=== PATIENT | female | born 1975 | race African-American/Black ===

== ENCOUNTER 2024-07-07 17:58 | Emergency (ER) | payer OTHER ==
--- NOTE | 2024-07-07 19:25 | RAD REPORT ---
Exam:Knee Left 3 View HISTORY: Left knee pain FINDINGS: No fracture or dislocation seen Mild medial joint space narrowing
[2024-07-07 21:17] LABS: Absolute Eosinophils 0.1 K/uL (0-0.5); Absolute Lymphocytes (CBC) 1.4 K/uL (0.7-4.9); Absolute Monocytes 0.3 K/uL (0.1-1.3); Absolute Neutrophil 3.6 K/uL (1.8-8.0); Basophils % 0.8 % (0-1.3); Eosinophils % 1.9 % (0-4.4); Hematocrit 35.5 % (36.0-45.0); Hemoglobin 11.8 g/dL (12.0-15.0); Lymphocytes % 25.6 % (15.3-44.8); MCH 29.5 pg (27.0-35.0); MCHC 33.1 g/dL (32.0-36.0); MPV 10.5 fL (7.6-11.3); Monocytes % 5.7 % (3.3-12.3); Platelets 195 thou/uL (152-406); RBC Red Blood Cell Count 3.99 M/uL (3.86-4.86); Red Cell Distribution Width 13.8 % (12.1-15.2)
[2024-07-07] MEDS ORDERED: ONDANSETRON 4 MG/2 ML VIAL ONE (21:19)
[2024-07-07] MEDS ORDERED: KETOROLAC 30 MG/ML INJ ONE (21:19)
[2024-07-07 21:34] LABS: Albumin 3.5 g/dL (3.4-5.0); Albumin/Globulin Ratio 0.7 (1.1-1.8); Anion Gap 4.2 mEq/L (5.0-15.0); Bilirubin Total 0.3 mg/dL (0.2-1.0); Globulin 4.8 g/dL (2.3-3.5); Potassium 3.2 mEq/L (3.5-5.1); Protein, Total 8.3 g/dL (6.4-8.2)
--- NOTE | 2024-07-07 22:51 | RAD REPORT ---
EXAMINATION: CT ABDOMEN AND PELVIS WITH CONTRAST CLINICAL INDICATION: Abdominal pain TECHNIQUE: CT abdomen and pelvis was performed, after the administration of 100 cc Isovue-300.. Sagit mady and coronal reconstructions were obtained. One or more of the following dose reduction techniques were used: Automated exposure control, adjustment of the mA and/or kV according to patien t size, and/or iterative reconstruction. Unless otherwise specified, incidental findings do not require dedicated imaging follow-up. [id number]. Oral contrast was not given which limits evaluation of b owel and appendix. COMPARISON: none FINDINGS: Cholecystectomy The liver, spleen, pancreas, adrenals and kidneys appear unremarkable There is no evidence of diverticulitis Normal appendix. No adnexal mass 2.5 cm soft tissue structure extending off of the uterine fundus probably a fibroid. Moderate amount of stool is present within the transverse and right colon. : IMPRESSION: Moderate amount of stool is present within the transverse and right colon.
[2024-07-07 23:08] LABS: Specific Gravity > 1.030 (1.005-1.030)
[2024-07-07 23:09] LABS: Specific Gravity > 1.030 (1.005-1.030); Sqamous Epithelial <5 /HPF (None Seen); Urine Bacteria None Seen /HPF (<20); Urine Bilirubin NEGATIVE (Negative); Urine Blood Negative (Negative); Urine Clarity Clear (Clear); Urine Color Yellow (Yellow); Urine Culture Reflex Order NOT NEEDED; Urine Glucose NEGATIVE (Negative); Urine Ketones NEGATIVE (Negative); Urine Microscopic Reflex YN ORDER UMIC; Urine Mucus Slight /HPF (None Seen); Urine Nitrite NEGATIVE (Negative); Urine Protein TRACE (Negative); Urine RBC None Seen /HPF (None Seen); Urine Urobilinogen Normal (Normal); Urine WBC <5 /HPF (<5); Urine Yeast (Budding) Trace /HPF (None Seen); Urine pH 7.5 (5.0-7.0)
--- NOTE | 2024-07-07 23:20 | ER ---
Nurse's Notes [facility] Name: Oc Burks Age: 49 yrs Sex: Female : 1975 Arrival Date: 07/07/2024 Time: 17:58 Bed 25 Private MD: Diagnosis: Pain in left knee;Constipation Presentation: 07/07 17:59 Chief complaint: Patient states: left knee pain , pops in and out , abd pain since iw yesterday, thought she was constipated , dry heaving. Coronavirus screen: At this time, the client does not indicate any symptoms associated with coronavirus-19. Ebola Screen: No symptoms or risks identified at this time. Initial Sepsis Screen: Does the patient meet any 2 criteria? No. Patient's initial sepsis screen is negative. Does the patient have a suspected source of infection? No. Patient's initial sepsis screen is negative. Risk Assessment: Do you want to hurt yourself or someone else? Patient reports no desire to harm self or others. 17:59 Method Of Arrival: EMS: [facility] iw 17:59 Acuity: MICHAEL 4 iw 18:10 Acuity: MICHAEL 3 iw 18:18 Onset of symptoms was July 06, 2024. 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 - Infectious Disease History:: Denies. - Social history:: Smoking status: Patient denies any tobacco usage or history of. Screenin:30 [facility] ED Fall Risk Assessment (Adult) History of falling in the last 3 months, jb4 including since admission No falls in past 3 months (0 pts) Confusion or Disorientation No (0 pts) Intoxicated or Sedated No (0 pts) Impaired Gait Yes (1 pt) Mobility Assist Device Used No (0 pt) Altered Elimination No (0 pt) Score/Fall Risk Level 0 - 2 = Low Risk Oriented to surroundings, Maintained a safe environment. Abuse screen: Denies threats or abuse. Nutritional screening: No deficits noted. Tuberculosis screening: No symptoms or risk factors identified. Assessment: 20:15 General: Appears in no apparent distress. comfortable, Behavior is calm, cooperative, jb4 appropriate for age. Pain: Complains of pain in left knee Pain does not radiate. Pain currently is 5 out of 10 on a pain scale. Neuro: Level of Consciousness is awake, alert, obeys commands, Oriented to person, place, time, situation. Cardiovascular: Patient's skin is warm and dry. Respiratory: Airway is patent Respiratory effort is even, unlabored, Respiratory pattern is regular, symmetrical. GI: No signs and/or symptoms were reported involving the gastrointestinal system. Pt eating chips. : No signs and/or symptoms were reported regarding the genitourinary system. EENT: No signs and/or symptoms were reported regarding the EENT system. Derm: Skin is intact, Skin is pink, warm \T\ dry. Musculoskeletal: Circulation, motion, and sensation intact. Range of motion: intact in all extremities. 21:30 Reassessment: Patient appears in no apparent distress at this time. Patient and/or jb4 family updated on plan of care and expected duration. Pain level reassessed. Patient is alert, oriented x 3, equal unlabored respirations, skin warm/dry/pink. 23:37 Reassessment: Patient appears in no apparent distress at this time. Patient and/or jb4 family updated on plan of care and expected duration. Pain level reassessed. Patient is alert, oriented x 3, equal unlabored respirations, skin warm/dry/pink. Vital Signs: 18:18 BP 135 / 84; Pulse 83; Resp 16; Temp 98.4; Pulse Ox 100% on R/A; Weight 90.72 kg; iw Height 5 ft. 7 in. ; Pain 8/10; 22:00 BP 172 / 115; Pulse 58; Resp 16; Pulse Ox 100% on R/A; jb4 18:18 Body Mass Index 31.32 (90.72 kg, 170.18 cm) iw 18:18 Pain Scale: Adult iw ED Course: 17:58 Patient arrived in ED. iw 17:59 Triage completed. iw 18:00 Nilson Ramos PA is PHCP. cp 18:00 Rodney Loving MD is Attending Physician. cp 19:14 XRAY Knee LEFT 3 view In Process Unspecified. EDMS 20:34 Attending Physician role handed off by Rodney Loving MD rt 20:34 Osmin Fuller MD is Attending Physician. rt 21:09 Missed attempt(s): 22 gauge Bleeding controlled, band aid applied, catheter tip intact. oe 21:10 Inserted saline lock: 20 gauge in right antecubital area, using aseptic technique. oe Blood collected. Flushed with 10 mL NS. 21:30 Patient has correct armband on for positive identification. Bed in low position. Call jb4 light in reach. Side rails up X 1. Provided Education on: plan of care. 22:09 CT Abd/Pelvis - IV Contrast Only In Process Unspecified. EDMS 23:38 No provider procedures requiring assistance completed. IV discontinued, intact, jb4 bleeding controlled, No redness/swelling at site. Pressure dressing applied. Administered Medications: 21:23 Drug: Ketorolac IVP 15 mg IVP once Route: IVP; Site: right antecubital; jb4 23:36 Follow up: Response: No adverse reaction; Marked relief of symptoms jb4 21:23 Drug: Ondansetron IVP 4 mg IVP once; over 2 minutes Route: IVP; Site: right antecubital;jb4 23:36 Follow up: Response: No adverse reaction; Marked relief of symptoms jb4 Medication: 21:30 VIS not applicable for this client. jb4 Outcome: 23:20 Discharge ordered by . rt 23:38 Discharged to home via wheelchair, with family, jb4 23:38 Condition: stable 23:38 Discharge instructions given to patient, Instructed on discharge instructions, follow up and referral plans. medication usage, Demonstrated understanding of instructions, follow-up care, medications, Prescriptions given X 1, 23:38 Patient left the ED. jb4 Signatures: Dispatcher [employer] EDMS Marycruz Henriquez, RN RN iw Nilson Ramos PA PA cp Bryson, James RN RN jb4 Carlos Alberto Caceres oe Osmin Fuller MD MD rt Corrections: (The following items were deleted from the chart) 18:19 17:59 Chief complaint: Patient states: left knee pain , pops in and out iw iw
--- NOTE | 2024-07-07 23:20 | EDPHYS ---
Physician Documentation [facility] Name: Oc Burks Age: 49 yrs Sex: Female : 1975 Arrival Date: 07/07/2024 Time: 17:58 Bed 25 Private MD: ED Physician Osmin Fuller HPI: 07/07 18:05 This 49 yrs old Black Female presents to ER via EMS with complaints of Knee Pain. cp 18:05 The patient presents with pain, that is chronic, tenderness. The complaints affect the cp lateral aspect of left knee and left knee. 18:05 Context: the patient is not able to bear weight, the patient is not able to ambulate, cp Problem is a result from a previous injury: No. Associated signs and symptoms: Pertinent positives: nausea. The patient presents with abdominal pain left flank. Onset: The symptoms/episode began/occurred yesterday. 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 - Infectious Disease History:: Denies. - Social history:: Smoking status: Patient denies any tobacco usage or history of. ROS: 18:10 Constitutional: Negative for body aches, chills, fever, poor PO intake, cp 18:10 Eyes: Negative for injury, pain, redness, and discharge, cp 18:10 Cardiovascular: Negative for chest pain, palpitations, 18:10 Respiratory: Negative for cough, shortness of breath, wheezing, 18:10 Abdomen/GI: Positive for abdominal pain, nausea, of the left flank, Negative for vomiting, diarrhea, constipation, 18:10 MS/extremity: Positive for decreased range of motion, pain, of the left knee, Negative for deformity, Exam: 18:15 Head/Face: Normocephalic, atraumatic. cp 18:15 Constitutional: The patient appears in no acute distress, alert, awake, non-diaphoretic, non-toxic, well developed, well nourished, obese, uncomfortable, 18:15 Eyes: Periorbital structures: appear normal, Conjunctiva: normal, no exudate, no injection, Sclera: no appreciated abnormality, Lids and lashes: appear normal, bilaterally, 18:15 ENT: External ear(s): are unremarkable, Nose: is normal, Mouth: Lips: moist, Oral mucosa: moist, Posterior pharynx: Airway: normal, 18:15 Chest/axilla: Inspection: normal, 18:15 Cardiovascular: Rate: normal, Rhythm: regular, 18:15 Respiratory: the patient does not display signs of respiratory distress, Respirations: normal, no use of accessory muscles, no retractions, labored breathing, is not present, Breath sounds: are clear throughout, no decreased breath sounds, no stridor, no wheezing, 18:15 Abdomen/GI: Inspection: obese Bowel sounds: active, all quadrants, Palpation: soft, in all quadrants, moderate abdominal tenderness, in the left upper quadrant and left lower quadrant, rebound tenderness, is not appreciated, involuntary guarding, is not appreciated, 18:15 Musculoskeletal/extremity: Extremities: noted in the left knee: pain, tenderness, There is no evidence of deformity, ROM: limited passive range of motion due to pain, in the left knee, 18:15 Neuro: Orientation: to person, place \T\ time. Mentation: is normal, Vital Signs: 18:18 BP 135 / 84; Pulse 83; Resp 16; Temp 98.4; Pulse Ox 100% on R/A; Weight 90.72 kg; iw Height 5 ft. 7 in. ; Pain 8/10; 22:00 BP 172 / 115; Pulse 58; Resp 16; Pulse Ox 100% on R/A; jb4 18:18 Body Mass Index 31.32 (90.72 kg, 170.18 cm) iw 18:18 Pain Scale: Adult iw MDM: 18:00 Patient medically screened. cp 07/07 18:01 Order name: CBC with Diff; Complete Time: 22:04 cp 07/07 18:01 Order name: CMP; Complete Time: 22:04 cp 07/07 18: Order name: Lipase; Complete Time: 22:04 cp 07/07 18:01 Order name: Test, Urine; Complete Time: 23:16 cp 07/07 18:01 Order name: Urinalysis w/ reflexes; Complete Time: 23:16 cp 07/07 18: Order name: XRAY Knee LEFT 3 view; Complete Time: 19:54 07/07 19:54 Interpretation: Report reviewed. 07/07 18:55 Order name: CT Abd/Pelvis - IV Contrast Only; Complete Time: 22:54 07/07 18:01 Order name: IV Saline Lock; Complete Time: 21:18 cp 07/07 18:01 Order name: Labs collected and sent; Complete Time: 21:18 07/07 23:37 Order name: [place] Wrap; Complete Time: 23:37 jb4 Administered Medications: 21:23 Drug: Ketorolac IVP 15 mg IVP once Route: IVP; Site: right antecubital; jb4 23:36 Follow up: Response: No adverse reaction; Marked relief of symptoms jb4 21:23 Drug: Ondansetron IVP 4 mg IVP once; over 2 minutes Route: IVP; Site: right antecubital;jb4 23:36 Follow up: Response: No adverse reaction; Marked relief of symptoms jb4 Disposition: 07/08 00:47 Co-signature as Attending Physician, Osmin Fuller MD I reviewed the patient's care rt provided by Advanced Practice Provider \T\ agree w/ the diagnosis \T\ care plan. I personally saw the pt \T\ performed a substantive portion of the visit, incldng all aspects of the (History/Exam/Medical Decision Making). 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 My personal exam of patient reveals: No swelling, erythema noted to the knee Patient informed of findings of fatty liver, instructed to follow-up as an outpatient.. Disposition Summary: 07/07/24 23:20 Discharge Ordered Notes: Location: Home rt Problem: new rt Symptoms: have improved rt Condition: Stable rt Diagnosis - Pain in left knee rt - Constipation rt Followup: rt - With: Private Physician - When: 2 - 3 days - Reason: Discharge Instructions: - Discharge Summary Sheet rt - Constipation, Adult rt - Acute Knee Pain, Adult rt Forms: - Medication Reconciliation Form rt - Antibiotic Education rt - Prescription Opioid Use rt - Patient Portal Instructions rt - Leadership Thank You Letter rt Prescriptions: - Lactulose 10 gram/15 mL Oral Solution - take 30 milliliters ORAL route once daily; 300 milliliter; Refills: 0, Product rt Selection Permitted Signatures: Dispatcher [employer] EDMS Martinez, MarycruzHEMA luna RN, Corey, PA PA cp Bryson, James, RN RN jb4 Osmin Fuller MD MD rt Corrections: (The following items were deleted from the chart) 07/07 18: 18:01 CBC+H.LAB.BRZ ordered. EDMS EDMS 18: 18:01 COMPREHENSIVE METABOLIC PANEL+C.LAB.BRZ ordered. EDMS EDMS 18: 18:01 LIPASE+C.LAB.BRZ ordered. EDWI EDMS 18: 18:01 Test, Urine+UC.LAB.BRZ ordered. EDMS EDMS 18: 18:01 Urinalysis+U.LAB.BRZ ordered. EDWI EDMS 20:07/06 18:15 Constitutional: The patient appears in no acute distress, alert, awake, cp non-diaphoretic, non-toxic, well developed, well nourished, obese, uncomfortable, cp 07/07 20:07/06 18:15 Head/Face: Normocephalic, atraumatic. cp cp 07/07 20:07/06 18:15 Eyes: Periorbital structures: appear normal, Conjunctiva: normal, no cp exudate, no injection, Sclera: no appreciated abnormality, Lids and lashes: appear normal, bilaterally, cp 07/07 20:07/06 18:15 ENT: External ear(s): are unremarkable, Nose: is normal, Mouth: Lips: cp moist, Oral mucosa: moist, Posterior pharynx: Airway: normal, cp 07/07 20:07/06 18:15 Chest/axilla: Inspection: normal, cp 07/07 20:07/06 18:15 Cardiovascular: Rate: normal, Rhythm: regular, cp 07/07 20:07/06 18:15 Respiratory: the patient does not display signs of respiratory distress, cp Respirations: normal, no use of accessory muscles, no retractions, labored breathing, is not present, Breath sounds: are clear throughout, no decreased breath sounds, no stridor, no wheezing, cp 07/07 20:07/06 18:15 Abdomen/GI: Inspection: obese Bowel sounds: active, all quadrants, cp Palpation: soft, in all quadrants, moderate abdominal tenderness, in the left upper quadrant and left lower quadrant, rebound tenderness, is not appreciated, involuntary guarding, is not appreciated, cp 07/07 20:07/06 18:15 Musculoskeletal/extremity: Extremities: noted in the left knee: pain, cp tenderness, There is no evidence of deformity, ROM: limited passive range of motion due to pain, in the left knee, cp 07/07 20:07/06 18:15 Neuro: Orientation: to person, place \T\ time. Mentation: is normal, cp cp 07/07 23:36 19:54 Knee Immobilizer ordered. cp jb4
[2024-07-07 23:56] VITALS: TEMP 98.4; O2SAT 100
[2024-07-07 23:58] VITALS: BP 172/115
== END 2024-07-07 23:38 | disposition home or self-care (01) ==
LOC: ER 17:58
DX: M25.562 Pain in left knee (principal); K59.00 Constipation, unspecified
CPT/HCPCS: 85025; 81001; 36415; 81025; 83690; 80053; 74177; 73562; 96375; 96374; 99284; Q9967; J2405

== ENCOUNTER 2024-07-12 01:13 | Emergency (ER) | payer OTHER ==
[2024-07-12] MEDS ORDERED: DIAZEPAM 5 MG TABLET ONE (01:51)
[2024-07-12 02:05] LABS: ALT/SGPT 23 U/L (13-56); AST/SGOT 28 U/L (15-37); Albumin 3.3 g/dL (3.4-5.0); Albumin/Globulin Ratio 0.7 (1.1-1.8); Alkaline Phosphatase 79 U/L (45-117); Anion Gap 8.4 mEq/L (5.0-15.0); BUN Blood Urea Nitrogen 16 mg/dL (7-18); Bicarbonate 27 mEq/L (21-32); Bilirubin Total 0.2 mg/dL (0.2-1.0); Globulin 4.6 g/dL (2.3-3.5); Glomerular Filtration Rate 69 ml/min (=/>90); Glucose Level 76 mg/dL (74-106); Magnesium 2.2 mg/dL (1.6-2.4); NT PRO-BNP 136 pg/mL (<125); Potassium 3.4 mEq/L (3.5-5.1); Protein, Total 7.9 g/dL (6.4-8.2); Sodium Level 140 mEq/L (136-145); Troponin High Sensitivity 3.8 pg/mL (<58.9)
[2024-07-12 02:12] LABS: Bilirubin Direct < 0.2 mg/dL (0-0.2)
[2024-07-12 02:18] LABS: Absolute Eosinophils 0.1 K/uL (0-0.5); Absolute Lymphocytes (CBC) 1.6 K/uL (0.7-4.9); Absolute Monocytes 0.4 K/uL (0.1-1.3); Absolute Neutrophil 3.4 K/uL (1.8-8.0); Basophils % 0.6 % (0-1.3); Eosinophils % 2.1 % (0-4.4); Hemoglobin 11.6 g/dL (12.0-15.0); Lymphocytes % 27.9 % (15.3-44.8); MCH 29.4 pg (27.0-35.0); MCHC 32.4 g/dL (32.0-36.0); MCV 90.7 fL (80-100); MPV 11.7 fL (7.6-11.3); Monocytes % 7.4 % (3.3-12.3); Platelets 183 thou/uL (152-406); RBC Red Blood Cell Count 3.96 M/uL (3.86-4.86); Red Cell Distribution Width 13.7 % (12.1-15.2)
--- NOTE | 2024-07-12 02:45 | EDPHYS ---
Physician Documentation [facility] Name: Oc Burks Age: 49 yrs Sex: Female : 1975 Arrival Date: 07/12/2024 Time: 01:13 Bed 4 Private MD: ED Physician River Gomez HPI: 07/12 01:28 This 49 yrs old Black Female presents to ER via Unassigned with complaints of Chest sp4 Pain. 02:42 Patient is 49-year-old female who presents complaining of nonexertional midsternal sp4 chest pain as she was having difficult time dealing with identity theft. Denied Exertional chest pain denied prior history of heart disease. 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 - Infectious Disease History:: Denies. - Social history:: Smoking status: Patient denies any tobacco usage or history of. Patient/guardian denies using street drugs. - Family history:: not pertinent. ROS: 02:42 Constitutional: Negative for fever, chills, and weight loss, positive today for sp4 midsternal chest pain 02:42 All other systems are negative, Exam: 02:42 Constitutional: This is a well developed, well nourished patient who is awake, alert, sp4 and in no acute distress. Head/Face: Normocephalic, atraumatic. Eyes: Pupils equal round and reactive to light, extra-ocular motions intact. Lids and lashes normal. Conjunctiva and sclera are not injected. Cornea within normal limits. Periorbital areas with no swelling, redness, or edema. ENT: Nares patent. No nasal discharge, no septal abnormalities noted. Tympanic membranes are normal and external auditory canals are clear. Oropharynx with no redness, swelling, or masses, exudates, or evidence of obstruction, uvula midline. Mucous membranes moist. Neck: Trachea midline, no thyromegaly or masses palpated, and no cervical lymphadenopathy. Supple, full range of motion without nuchal rigidity, or vertebral point tenderness. Chest/axilla: Normal chest wall appearance and motion. Nontender with no deformity. No lesions are appreciated. Cardiovascular: Regular rate and rhythm with a normal S1 and S2. No gallops, murmurs, or rubs. Normal PMI, no JVD. No pulse deficits. Respiratory: Lungs have equal breath sounds bilaterally, clear to auscultation and percussion. No rales, rhonchi or wheezes noted. No increased work of breathing, no retractions or nasal flaring. Abdomen/GI: Soft, with normal bowel sounds. No distension or tympany. No guarding or rebound. No evidence of tenderness throughout. Back: No spinal tenderness. No costovertebral tenderness. Skin: Warm, dry with normal turgor. Normal color with no rashes, no lesions, and no evidence of cellulitis. MS/ Extremity: Pulses equal, no cyanosis. Neurovascular intact. Full, normal range of motion. Neuro: Awake and alert, GCS 15, oriented to person, place, time, and situation. Cranial nerves II-XII grossly intact. Motor strength 5/5 in all extremities. Sensory grossly intact. Psych: Awake, alert, with orientation to person, place and time. Behavior, mood, and affect are within normal limits 02:43 ECG was reviewed by the Attending Physician. EKG at 0 126 normal sinus rhythm rate sp4 87 Vital Signs: 01:22 BP 135 / 73; Pulse 92; Resp 22 S; Temp 98.1; Pulse Ox 100% on R/A; Weight 86.18 kg; br2 Height 5 ft. 7 in. ; Pain 7/10; 02:30 BP 130 / 70; Pulse 80; Resp 20 S; Pulse Ox 98% on R/A; Pain 2/10; br2 01:22 Body Mass Index 29.76 (86.18 kg, 170.18 cm) br2 01:22 Pain Scale: Adult br2 02:30 Pain Scale: Adult br2 Cyril Coma Score: 02:42 Eye Response: spontaneous(4). Motor Response: obeys commands(6). Verbal Response: sp4 oriented(5). Total: 15. MDM: 01:29 Patient medically screened. sp4 02:45 Differential diagnosis: acute pericarditis, anxiety, coronary artery disease chest wall sp4 pain, congestive heart failure. HEART Score: History: Slightly Suspicious (0), ECG: Normal (0), Age: > 45 and < 65 years (1), Risk Factors: No Risk Factors Known (0), Troponin: < or = 1 x Normal Limit (0), Total Score = 1. The patient was not given aspirin in the Emergency Department. Aspirin not given, patient refused. Data reviewed: vital signs, nurses notes, old medical records, lab test result(s), EKG. ED course: Work up Negative today, patient stable for discharge home.. 07/12 01:28 Order name: Basic Metabolic Panel; Complete Time: 02:37 sp4 07/12 01:28 Order name: CBC with Diff; Complete Time: 02:37 sp4 07/12 01:28 Order name: LFT's; Complete Time: 02:37 sp4 07/12 01:28 Order name: Magnesium; Complete Time: :37 sp4 07/12 01:28 Order name: NT PRO-BNP; Complete Time: 02:37 sp4 07/12 01:28 Order name: Troponin HS; Complete Time: 02:37 sp4 07/12 01:28 Order name: EKG; Complete Time: 01:29 sp4 07/12 01:28 Order name: Cardiac monitoring; Complete Time: :55 sp4 07/12 01:28 Order name: EKG - Nurse/Tech; Complete Time: sp4 07/12 01:28 Order name: IV Saline Lock; Complete Time: 55 sp4 07/12 01:28 Order name: Labs collected and sent; Complete Time: :56 sp4 07/12 01:28 Order name: O2 Per Protocol; Complete Time: :56 sp4 07/12 01:28 Order name: O2 Sat Monitoring; Complete Time: :56 sp4 EC:43 Rate is 87 beats/min. Rhythm is regular, Normal Sinus Rhythm. QRS [place] is Normal. ME sp4 interval is normal. QRS interval is normal. QT interval is normal. No Q waves. T waves are Normal. No ST changes noted. Clinical impression: No evidence of ischemia. Interpreted by me. Reviewed by me. Administered Medications: 01:55 Drug: Diazepam PO 10 mg PO once Route: PO; br2 02:59 Follow up: Response: No adverse reaction; Pain is decreased br2 Disposition Summary: 07/12/24 02:44 Discharge Ordered Notes: Location: Home sp4 Problem: new sp4 Symptoms: have improved sp4 Condition: Stable sp4 Diagnosis - Acute anxiety attack, Anxiety disorder , Non cardiac chest pain sp4 Followup: sp4 - With: Private Physician - When: As needed - Reason: Recheck today's complaints Discharge Instructions: - Discharge Summary Sheet sp4 - Managing Anxiety, Adult sp4 Forms: - Patient Portal Instructions sp4 Prescriptions: - Valium 5 mg Oral tablet - take 1 tablet ORAL route once daily As needed PRN anxiety; 12 tablet; Refills: sp4 0, Product Selection Permitted Signatures: Dispatcher [employer] EDMS River Gomez MD MD sp4 Isabela Ely RN RN br2 Corrections: (The following items were deleted from the chart) 01: 01:29 BASIC METABOLIC PANEL+C.LAB.BRZ ordered. EDMS EDMS : 01:29 CBC+H.LAB.BRZ ordered. EDMS EDMS : 01:29 HEPATIC FUNCTION+C.LAB.BRZ ordered. EDMS EDMS : 01:29 MAGNESIUM+C.LAB.BRZ ordered. EDMS EDMS : 01:29 PROBNP+C.LAB.BRZ ordered. EDMS EDMS 01: 01:29 Troponin High Sensitivity+C.LAB.BRZ ordered. EDMS EDMS
--- NOTE | 2024-07-12 02:45 | ER ---
Nurse's Notes [facility] Name: Oc Burks Age: 49 yrs Sex: Female : 1975 Arrival Date: 07/12/2024 Time: 01:13 Bed 4 Private MD: Diagnosis: Acute anxiety attack, Anxiety disorder , Non cardiac chest pain Presentation: 07/12 01:22 Chief complaint: Patient states: PT STATES PAIN MID-STERNAL CP WORSE WHEN SHE TAKES A br2 DEEP BREATH 04/16 EMS states: PT BROUGHT VIA EMS DUE TO MID-STERNAL CHEST PAIN. PER EMS PT HAD AN EPISODE WHILE LYING SUPINE ON STRETCHER THAT HER B/P DROPPED. Coronavirus screen: Client denies travel out of the [place] in the last 14 days. Ebola Screen: Patient negative for fever greater than or equal to 101.5 degrees Fahrenheit, and additional compatible Ebola Virus Disease symptoms Patient denies exposure to infectious person. Patient denies travel to an Ebola-affected area in the 21 days before illness onset. Initial Sepsis Screen: Does the patient meet any 2 criteria? No. Patient's initial sepsis screen is negative. Does the patient have a suspected source of infection? No. Patient's initial sepsis screen is negative. Risk Assessment: Do you want to hurt yourself or someone else? Patient reports no desire to harm self or others. Onset of symptoms. 01:22 Method Of Arrival: EMS: [facility] br2 01:22 Acuity: MICHAEL 3 br2 Triage Assessment: 01:22 General: Appears in no apparent distress. comfortable, Behavior is cooperative, br2 restless. Pain: Complains of pain in chest Pain does not radiate. Pain currently is 7 out of 10 on a pain scale. Pain began 1 day ago. EENT: No signs and/or symptoms were reported regarding the EENT system. Neuro: Vale Agitation-Sedation Scale (RASS): 0 - Alert and Calm Level of Consciousness is awake, alert, obeys commands, Oriented to person, place, time, situation, Speech is normal, Facial symmetry appears normal. Cardiovascular: Reports chest pain, Capillary refill < 3 seconds. Respiratory: Breath sounds are clear bilaterally. GI: No signs and/or symptoms were reported involving the gastrointestinal system. Abdomen is round Abd is soft and non tender X 4 quads. : No signs and/or symptoms were reported regarding the genitourinary system. Derm: Skin is intact, Skin is dry, Skin is normal, Skin temperature is warm. 01:22 Musculoskeletal: No signs and/or symptoms reported regarding the musculoskeletal br2 system. Capillary refill < 3 seconds, Range of motion: intact in all extremities. STAFF DEVELOPMENT COORDINATOR: 02:30 LMP N/A - , Not br2 Historical: - Allergies: 01:42 PENICILLINS; br2 - PSHx: 01:42 section; br2 - Immunization history:: Adult Immunizations not up to date. - Infectious Disease History:: Denies. - Social history:: Smoking status: Patient denies any tobacco usage or history of. Patient/guardian denies using street drugs. - Family history:: not pertinent. Screenin: [facility] ED Fall Risk Assessment (Adult) History of falling in the last 3 months, br2 including since admission No falls in past 3 months (0 pts) Confusion or Disorientation No (0 pts) Intoxicated or Sedated No (0 pts) Impaired Gait No (0 pts) Mobility Assist Device Used No (0 pt) Altered Elimination No (0 pt) Score/Fall Risk Level 0 - 2 = Low Risk. Abuse screen: Denies threats or abuse. Denies injuries from another. Abuse screen: Denies threats or abuse. Nutritional screening: No deficits noted. Tuberculosis screening: No symptoms or risk factors identified. Assessment: :22 Reassessment: SEE TRIAGE ASSESSMENT. Pain: Complains of pain in chest. br2 02:30 Reassessment: Patient and/or family updated on plan of care and expected duration. Pain br2 level reassessed. Patient is alert, oriented x 3, equal unlabored respirations, skin warm/dry/pink. Patient states feeling better. Patient states symptoms have improved. Pain: Complains of pain in chest Pain currently is 2 out of 10 on a pain scale. Vital Signs: 01:22 BP 135 / 73; Pulse 92; Resp 22 S; Temp 98.1; Pulse Ox 100% on R/A; Weight 86.18 kg; br2 Height 5 ft. 7 in. ; Pain 7/10; 02:30 BP 130 / 70; Pulse 80; Resp 20 S; Pulse Ox 98% on R/A; Pain 2/10; br2 01:22 Body Mass Index 29.76 (86.18 kg, 170.18 cm) br2 01:22 Pain Scale: Adult br2 02:30 Pain Scale: Adult br2 [place] Coma Score: 02:42 Eye Response: spontaneous(4). Motor Response: obeys commands(6). Verbal Response: sp4 oriented(5). Total: 15. ED Course: 01:22 Patient arrived in ED. ha1 01:22 Arm band placed on left wrist. Patient placed on a stretcher, in view of staff members, br2 on traffic monitor specialist, on pulse oximetry. EKG completed in triage. Results shown to MD. 01:22 Patient has correct armband on for positive identification. Placed in gown. Bed in low br2 position. Call light in reach. Side rails up X 1. Provided Education on: PLAN OF CARE. Client placed on continuous cardiac and pulse oximetry monitoring. NIBP monitoring applied. monitor worker on. Door closed. Noise minimized. Lights dimmed. 01:28 River Gomez MD is Attending Physician. sp4 01:29 Inserted saline lock: 20 gauge in right antecubital area, using aseptic technique. ha1 Blood collected. Flushed with 10 mL NS. 01:33 Isabela Ely, RN is Primary Nurse. br2 01:42 Triage completed. br2 01:56 Basic Metabolic Panel Sent. br2 01:56 CBC with Diff Sent. br2 01:56 LFT's Sent. br2 01:56 Magnesium Sent. br2 01:56 NT PRO-BNP Sent. br2 01:56 Troponin HS Sent. br2 02:57 No provider procedures requiring assistance completed. IV discontinued, intact, br2 bleeding controlled, No redness/swelling at site. Patient maintains SpO2 saturation greater than 95% on room air. Administered Medications: 01:55 Drug: Diazepam PO 10 mg PO once Route: PO; br2 02:59 Follow up: Response: No adverse reaction; Pain is decreased br2 Medication: 01:22 VIS not applicable for this client. br2 Outcome: 02:44 Discharge ordered by . sp4 02:57 Discharged to home ambulatory, br2 02:57 Condition: good 02:57 Discharge instructions given to patient, Instructed on discharge instructions, follow up and referral plans. medication usage, Demonstrated understanding of instructions, follow-up care, medications, Prescriptions given X 1, 02:58 Patient left the ED. br2 Signatures: Evelyn Carver RN RN ha1 River Gomez MD MD sp4 Isabela Ely RN RN br2 Corrections: (The following items were deleted from the chart) 03:43 01:22 LMP N/A - , Not br2 br2
[2024-07-12 03:08] VITALS: BP 135/73; TEMP 98.1; O2SAT 100
--- NOTE | 2024-07-14 11:58 | EKG ---
Test Date: 2024-07-12 Test Time: 01:26:26 Steak Tenderizer Machine: TESFAYE MEASUREMENT RESULTS: Intervals: Rate: 87 OR: 138 QRSD: 96 QT: 380 QTc: 457 [place]: P: 68 OR: 138 QRS: 28 T: 23 INTERPRETIVE STATEMENTS: Normal sinus rhythm Nonspecific T wave abnormality Abnormal ECG No previous ECG available for comparison Electronically Signed On 07-14-24 11:53:39 CDT by Terrence Stevenson
== END 2024-07-12 02:58 | disposition home or self-care (01) ==
LOC: ER 01:13
DX: F41.0 Panic disorder [episodic paroxysmal anxiety] (principal); F41.9 Anxiety disorder, unspecified
CPT/HCPCS: 36415; 80048; 80076; 83735; 83880; 84484; 85025; 93005; 99285

== ENCOUNTER 2024-07-13 01:39 | Emergency (ER) | payer OTHER ==
[2024-07-13] MEDS ORDERED: DIAZEPAM 5 MG TABLET ONE (01:57)
--- NOTE | 2024-07-13 02:16 | EDPHYS ---
Physician Documentation [facility] Name: Oc Burks Age: 49 yrs Sex: Female : 1975 Arrival Date: 07/13/2024 Time: 01:39 Bed 18 Private MD: ED Physician Alejo Reilly HPI: 07/13 01:49 This 49 yrs old Black Female presents to ER via Unassigned with complaints of Chest ec2 Pain. 01:49 Patient arrives today for reported anxiety. Patient was seen here last night for ec2 similar complaints. States that she was on the phone tonight and started and worked up and subsequently started having chest pain. No other concerns. External records show patient had a reassuring workup yesterday with a reassuring metabolic profile, CBC, troponin. . GAMING ASSOCIATE: 02:40 LMP N/A - Irregular menses, Not br2 - Immunization history:: Adult Immunizations not up to date. - Infectious Disease History:: Denies. - Social history:: Smoking status: Patient/guardian denies using tobacco, but has a distant history of tobacco abuse, Patient/guardian denies using. ROS: 01:50 Constitutional: as per hpi ec2 Exam: 01:50 Constitutional: GEN: NAD Head: atraumatic Eyes: EOMI Ears: External ears are ec2 normal. CV: regular rate LUNGS: no respiratory distress ABD: non-distended SKIN: no evidence of rashes MSK: no evidence of trauma. Psych: Hyperverbal individual with flight of ideas Vital Signs: 01:40 BP 161 / 93; Pulse 98; Resp 21 S; Temp 98.1(TE); Pulse Ox 100% on R/A; Weight 89.81 kg; br2 Height 5 ft. 7 in. ; Pain 8/10; 02:40 BP 141 / 95; Pulse 86; Resp 16 S; Temp 98.2; Pulse Ox 100% on R/A; Pain 10/10; br2 01:40 Body Mass Index 31.01 (89.81 kg, 170.18 cm) br2 01:40 Pain Scale: Adult br2 02:40 Pain Scale: Adult br2 MDM: 01:41 Patient medically screened. ec2 01:50 Data reviewed: vital signs. ED course: Patient arrives today for reported chest pain. ec2 Examination remarkable for well-appearing nontoxic dividual's otherwise in no acute distress. Patient is hyperverbal, suspect an underlying psychiatric disease. Will obtain EKG. Will give the patient Valium for her anxiety and verbosity . 02:09 ED course: EKG independently reviewed and interpreted by me, shows normal sinus rhythm, ec2 rate of 90, no acute ST segment elevations, intervals are nonactionable. . 07/13 01:42 Order name: EKG - Nurse/Tech; Complete Time: 02:09 ec2 Administered Medications: 01:58 Drug: Diazepam PO 5 mg PO once Route: PO; br2 02:15 Follow up: Response: No adverse reaction; Pain is decreased br2 Disposition Summary: 07/13/24 02:16 Discharge Ordered Notes: Location: Home ec2 Condition: Stable ec2 Diagnosis - Chest Pain ec2 - Flight of Ideas ec2 Followup: ec2 - With: Private Physician - When: - Reason: Re-evaluation by your physician Discharge Instructions: - Discharge Summary Sheet ec2 - Managing Anxiety, Adult ec2 Forms: - Medication Reconciliation Form ec2 - Antibiotic Education ec2 - Prescription Opioid Use ec2 - Patient Portal Instructions ec2 - Leadership Thank You Letter ec2 Signatures: Alejo Reilly MD MD ec2 Isabela Ely RN RN br2 Corrections: (The following items were deleted from the chart) 01:50 01:49 Patient arrives today for reported anxiety. Patient was seen here last night for ec2 similar complaints. States that she was on the phone tonight and started and worked up and subsequently started having chest pain. No other concerns.. ec2 01:51 01:50 Constitutional: GEN: NAD Head: atraumatic Eyes: EOMI Ears: External ears are ec2 normal. CV: regular rate LUNGS: no respiratory distress ABD: non-distended SKIN: no evidence of rashes MSK: no evidence of trauma ec2
--- NOTE | 2024-07-13 02:16 | ER ---
Nurse's Notes [facility] Name: Oc Burks Age: 49 yrs Sex: Female : 1975 Arrival Date: 07/13/2024 Time: 01:39 Bed 18 Private MD: Diagnosis: Chest Pain;Flight of Ideas Presentation: 07/13 01:40 Chief complaint: Patient states: MID-STERNAL CP WHILE TALKING ON THE PHONE WITH BF. PT br2 WAS IN ER LAST NIGHT FOR SAME SYMPTOMS. SHARP/STABBING. Coronavirus screen: Vaccine status: Patient reports being unvaccinated. Client denies travel out of the [place] in the last 14 days. Ebola Screen: Patient negative for fever greater than or equal to 101.5 degrees Fahrenheit, and additional compatible Ebola Virus Disease symptoms Patient denies exposure to infectious person. Patient denies travel to an Ebola-affected area in the 21 days before illness onset. Initial Sepsis Screen: Does the patient meet any 2 criteria? No. Patient's initial sepsis screen is negative. Does the patient have a suspected source of infection? No. Patient's initial sepsis screen is negative. Risk Assessment: Do you want to hurt yourself or someone else? Patient reports no desire to harm self or others. Onset of symptoms was July 13, 2024 at 01:51. 01:40 Method Of Arrival: EMS: [facility] br2 01:40 Acuity: MICHAEL 3 br2 Triage Assessment: 01:40 General: Appears in no apparent distress. Behavior is calm, anxious, quiet. Pain: br2 Complains of pain in chest Pain does not radiate. Pain began 1 hour ago. EENT: No signs and/or symptoms were reported regarding the EENT system. Neuro: Vale Agitation-Sedation Scale (RASS): 0 - Alert and Calm Level of Consciousness is awake, alert, obeys commands, confused, Oriented to person, place, time, situation. Cardiovascular: Reports chest pain, Capillary refill < 3 seconds. Respiratory: Airway is patent Respiratory effort is even, unlabored, Respiratory pattern is regular, symmetrical. GI: No signs and/or symptoms were reported involving the gastrointestinal system. Abdomen is round obese, Stools are reported to be constipated. : No signs and/or symptoms were reported regarding the genitourinary system. Derm: Skin is intact, Skin is dry, Skin is pink, warm \T\ dry. Skin temperature is warm. Musculoskeletal: No signs and/or symptoms reported regarding the musculoskeletal system. Circulation, motion, and sensation intact. Capillary refill < 3 seconds, Range of motion: intact in all extremities. ROD AND TUBE STRAIGHTENER: 02:40 LMP N/A - Irregular menses, Not br2 - Immunization history:: Adult Immunizations not up to date. - Infectious Disease History:: Denies. - Social history:: Smoking status: Patient/guardian denies using tobacco, but has a distant history of tobacco abuse, Patient/guardian denies using. Screenin:40 [facility] ED Fall Risk Assessment (Adult) History of falling in the last 3 months, br2 including since admission No falls in past 3 months (0 pts) Confusion or Disorientation No (0 pts) Intoxicated or Sedated No (0 pts) Impaired Gait No (0 pts) Mobility Assist Device Used No (0 pt) Altered Elimination No (0 pt) Score/Fall Risk Level 0 - 2 = Low Risk. Abuse screen: Denies threats or abuse. Denies injuries from another. Nutritional screening: No deficits noted. Tuberculosis screening: No symptoms or risk factors identified. Assessment: 02:15 Reassessment: No changes from previously documented assessment. Patient and/or family br2 updated on plan of care and expected duration. Pain level reassessed. Patient is alert, oriented x 3, equal unlabored respirations, skin warm/dry/pink. SEE TRIAGE ASSESSMENT. Pain: Complains of pain in chest. Vital Signs: 01:40 BP 161 / 93; Pulse 98; Resp 21 S; Temp 98.1(TE); Pulse Ox 100% on R/A; Weight 89.81 kg; br2 Height 5 ft. 7 in. ; Pain 8/10; 02:40 BP 141 / 95; Pulse 86; Resp 16 S; Temp 98.2; Pulse Ox 100% on R/A; Pain 10/10; br2 01:40 Body Mass Index 31.01 (89.81 kg, 170.18 cm) br2 01:40 Pain Scale: Adult br2 02:40 Pain Scale: Adult br2 ED Course: 01:40 Patient arrived in ED. [id number] 01:40 Patient has correct armband on for positive identification. Bed in low position. Call br2 light in reach. Side rails up X 1. Provided Education on: PLAN OF [place]. Client placed on continuous cardiac and pulse oximetry monitoring. NIBP monitoring applied. public health sanitarian on. Door closed. Noise minimized. Warm blanket given. 01:41 Alejo Reilly MD is Attending Physician. ec2 01:47 Isabela Ely, RN is Primary Nurse. br2 01:51 Triage completed. br2 02:40 Arm band placed on right wrist. EKG completed in triage. Results shown to MD. br2 02:47 No provider procedures requiring assistance completed. Patient did not have IV access br2 during this emergency room visit. Patient maintains SpO2 saturation greater than 95% on room air. Administered Medications: 01:58 Drug: Diazepam PO 5 mg PO once Route: PO; br2 02:15 Follow up: Response: No adverse reaction; Pain is decreased br2 Medication: 02:47 VIS not applicable for this client. br2 Outcome: 02:16 Discharge ordered by MD. ec2 02:47 Discharged to home ambulatory, br2 02:47 Condition: good 02:47 Discharge instructions given to patient, Instructed on discharge instructions, follow br2 up and referral plans. Demonstrated understanding of instructions, 02:48 Patient left the ED. br2 Signatures: Belem Charlton [email or web address] Alejo Reilly MD MD ec2 Isabela Ely, RN RN br2
[2024-07-13 02:59] VITALS: BP 161/93; TEMP 98.1; O2SAT 100
== END 2024-07-13 02:48 | disposition home or self-care (01) ==
LOC: ER 01:39
DX: R07.9 Chest pain, unspecified (principal); F30.8 Other manic episodes
CPT/HCPCS: 99284

== ENCOUNTER 2024-07-13 05:54 | Emergency (ER) | payer OTHER ==
[2024-07-13] MEDS ORDERED: droPERidol 5 MG/2 ML VIAL ONE (06:20)
[2024-07-13] MEDS ORDERED: DIPHENHYDRAMINE 50 MG/ML VIAL ONE (06:21)
[2024-07-13] MEDS ORDERED: FAMOTIDINE 20 MG/2 ML VIAL IV ONE (06:21)
[2024-07-13 06:22] LABS: Absolute Eosinophils 0.1 K/uL (0-0.5); Absolute Lymphocytes (CBC) 1.3 K/uL (0.7-4.9); Absolute Monocytes 0.4 K/uL (0.1-1.3); Basophils % 0.5 % (0-1.3); Eosinophils % 2.1 % (0-4.4); Hematocrit 35.3 % (36.0-45.0); Hemoglobin 11.5 g/dL (12.0-15.0); Lymphocytes % 27.4 % (15.3-44.8); MCH 29.3 pg (27.0-35.0); MCHC 32.7 g/dL (32.0-36.0); MCV 89.6 fL (80-100); MPV 10.8 fL (7.6-11.3); Monocytes % 7.7 % (3.3-12.3); Neutrophils % 62.3 % (41.7-73.7); Platelets 198 thou/uL (152-406); RBC Red Blood Cell Count 3.94 M/uL (3.86-4.86)
[2024-07-13 06:33] LABS: Anion Gap 9.3 mEq/L (5.0-15.0); Potassium 3.3 mEq/L (3.5-5.1); Troponin High Sensitivity 4.2 pg/mL (<58.9)
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
[2024-07-13] MEDS ORDERED: POTASSIUM CL SA 10 MEQ TAB PO ONE (06:47)
--- NOTE | 2024-07-13 06:57 | RAD REPORT ---
EXAM: XR Chest, 1 View CLINICAL HISTORY: The patient is 49 years old and is Female; Chest pain. TECHNIQUE: Single view of the chest. COMPARISON: No relevant prior studies available. FINDINGS: Lungs: No pulmonary vascular congestion or consolidation. Pleural space: Unremarkable. No pneumothorax. Heart: Unremarkable. No cardiomegaly. Mediastinum: Unremarkable. Bones/joints: No acute fracture visualized. Upper abdomen: No free air in the visualized upper abdomen. IMPRESSION: No acute cardiopulmonary process identified. Electronically signed by: Mariella Pope MD 07/13/2024 06:53 AM CDT RP Due to temporary technical issues with the PACS/[employer] reporting system, reports are being petra d by the in-house radiologist without review as a courtesy to ensure prompt reporting the interpreting radiologist is fully responsible for the content of the report. Transcribed Date/Time: 07/13/2024 6:57 AM
[2024-07-13 07:09] VITALS: BP 155/93
[2024-07-13 07:12] VITALS: TEMP 98.2; O2SAT 98
--- NOTE | 2024-07-14 11:55 | EKG ---
Test Date: 2024-07-13 Test Time: 06:22:40 Slitting Machine Feeder: MEASUREMENT RESULTS: Intervals: Rate: 84 FL: 140 QRSD: 86 QT: 410 QTc: 484 [place]: P: 75 FL: 140 QRS: 38 T: 14 INTERPRETIVE STATEMENTS: Normal sinus rhythm Prolonged QT Abnormal ECG Compared to ECG 07/13/2024 06:05:39 Prolonged QT interval now present Electronically Signed On 07-14-24 11:52:20 CDT by Terrence Stevenson
--- NOTE | 2024-07-14 11:55 | EKG ---
Test Date: 2024-07-13 Test Time: 06:05:39 Canvas Worker: MEASUREMENT RESULTS: Intervals: Rate: 82 MN: 142 QRSD: 90 QT: 408 QTc: 476 [place]: P: 59 MN: 142 QRS: 15 T: 4 INTERPRETIVE STATEMENTS: Normal sinus rhythm Normal ECG Compared to ECG 07/13/2024 02:06:11 No significant changes Electronically Signed On 07-14-24 11:52:22 CDT by Terrence Stevenson
--- NOTE | 2024-07-14 11:56 | EKG ---
Test Date: 2024-07-13 Test Time: 02:06:11 Weatherization Installer: TESFAYE MEASUREMENT RESULTS: Intervals: Rate: 90 CA: 144 QRSD: 92 QT: 390 QTc: 477 [place]: P: 70 CA: 144 QRS: 18 T: 24 INTERPRETIVE STATEMENTS: Normal sinus rhythm Normal ECG Compared to ECG 07/12/2024 01:26:26 T-wave abnormality no longer present Electronically Signed On 07-14-24 11:52:31 CDT by Terrence Stevenson
== END 2024-07-13 06:52 | disposition home or self-care (01) ==
LOC: ER 05:54
DX: R07.9 Chest pain, unspecified (principal); F22 Delusional disorders
CPT/HCPCS: 93005 ×3; 85025; 80048; 36415; 84484; 71045; 96375; 96374; 99284; J1200; J1790

== ENCOUNTER 2024-07-14 11:57 | Emergency (ER) | payer OTHER ==
[2024-07-14] MEDS ORDERED: DIAZEPAM 5 MG TABLET ONE (12:28)
--- NOTE | 2024-07-14 13:10 | EDPHYS ---
Physician Documentation [facility] Name: Oc Burks Age: 49 yrs Sex: Female : 1975 Arrival Date: 07/14/2024 Time: 11:57 Bed 18 Private MD: ED Physician Nilson Son HPI: 07/14 12:23 This 49 yrs old Black Female presents to ER via EMS with complaints of Chest Pain, sb4 Anxiety. 13:10 patient reports intermittent chest pain for several days that feels like heaviness. she sb4 has been seen here 4 times in the past 3 days for similar symptoms, had negative cardiac works, discharged with anxiety meds. states that she has not yet filled the medications. Historical: - Allergies: 12:01 PENICILLINS; kc6 - PMHx: 12:01 Anxiety; depressive disorder; Hypertensive disorder; kc6 - PSHx: 12:01 section; kc6 - Immunization history:: Adult Immunizations up to date. - Infectious Disease History:: Denies. - Social history:: Smoking status: Patient denies any tobacco usage or history of. ROS: 13:10 Constitutional: Negative for fever, chills, and weight loss, sb4 13:10 Cardiovascular: Positive for chest pain, 13:10 Psych: Positive for anxiety, 13:10 All other systems are negative, Exam: 13:10 Head/Face: Normocephalic, atraumatic. Eyes: Extra-ocular motions intact. Periorbital sb4 areas with no swelling, redness, or edema. ENT: Mucous membranes moist. Cardiovascular: Regular rate and rhythm with a normal S1 and S2. Respiratory: Lungs have equal breath sounds bilaterally, clear to auscultation and percussion. No rales, rhonchi or wheezes noted. No increased work of breathing, no retractions or nasal flaring. Skin: Warm, dry with normal turgor. Normal color with no rashes, no lesions, and no evidence of cellulitis. 13:10 Constitutional: The patient appears alert, awake, anxious, Vital Signs: 12:00 BP 152 / 90; Pulse 92; Resp 20 S; Temp 97.9(O); Pulse Ox 100% on R/A; Weight 89.36 kg kc6 (R); Height 5 ft. 7 in. (R); Pain 10/10; 13:41 BP 136 / 86; Pulse 80; Resp 18; Pulse Ox 100% ; kb3 12:00 Body Mass Index 30.85 (89.36 kg, 170.18 cm) kc6 12:00 Pain Scale: Adult kc6 MDM: 12:00 Patient medically screened. sb4 13:12 Data reviewed: vital signs, nurses notes, EMS record, EKG, and as a result, I will sb4 discharge patient. Test considered but Not performed: Labs: not indicated, patient has had negative blood work x 2. symptoms are unchanged, highly suggestive of anxiety disorder. 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 07/14 12:23 Order name: EKG; Complete Time: 12:24 sb4 07/14 12:23 Order name: EKG - Nurse/Tech; Complete Time: 12:44 sb4 EC:56 Rate is 79 beats/min. Rhythm is regular, Normal Sinus Rhythm. [place] interval is normal at sb4 140 msec. QRS interval is normal at 86 msec. QT interval is normal at 398 msec. No Q waves. T waves are Normal. No ST changes noted. Clinical impression: Normal ECG and No evidence of ischemia. Interpreted by me. Reviewed by me. Administered Medications: 12:44 Drug: Diazepam PO 5 mg PO once Route: PO; kc6 13:30 Follow up: Response: No adverse reaction; Anxiety decreased kb3 Disposition Summary: 07/14/24 13:09 Discharge Ordered Notes: Location: Home sb4 Problem: an ongoing problem sb4 Symptoms: have improved sb4 Condition: Stable sb4 Diagnosis - Anxiety disorder, unspecified sb4 Followup: sb4 - With: Laura Bradshaw DO - When: 2 - 3 days - Reason: Recheck today's complaints, Re-evaluation by your physician Discharge Instructions: - Discharge Summary Sheet sb4 - Panic Attack, [id number] sb4 - Managing Anxiety, Adult sb4 Forms: - Patient Portal Instructions sb4 - Leadership Thank You Letter sb4 Prescriptions: - Lisinopril 10 mg Oral tablet - take 1 tablet ORAL route once daily; 7 tablet; Refills: 0, Product Selection sb4 Permitted Signatures: Catalina Clark RN RN kc6 Phoebe Short PA-C PADerrell sb4 Anat Gleason RN kb3
--- NOTE | 2024-07-14 13:10 | ER ---
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 pt was kc6 given 324mg of aspirin en route and appears anxious upon arrival to ED. Coronavirus screen: At this time, the client does not indicate any symptoms associated with coronavirus-19. Ebola Screen: No symptoms or risks identified at this time. Initial Sepsis Screen: Does the patient meet any 2 criteria? HR > 90 bpm. Does the patient have a suspected source of infection? No. Patient's initial sepsis screen is negative. Risk Assessment: Do you want to hurt yourself or someone else? Patient reports no desire to harm self or others. Onset of symptoms was July 14, 2024. 12:00 Method Of Arrival: EMS: [facility] kc6 12:00 Acuity: MICHAEL 3 kc6 Historical: - Allergies: 12:01 PENICILLINS; kc6 - PMHx: 12:01 Anxiety; depressive disorder; Hypertensive disorder; kc6 - PSHx: 12:01 section; kc6 - Immunization history:: Adult Immunizations up to date. - Infectious Disease History:: Denies. - Social history:: Smoking status: Patient denies any tobacco usage or history of. Screenin:17 [facility] ED Fall Risk Assessment (Adult) History of falling in the last 3 months, kc6 including since admission No falls in past 3 months (0 pts) Confusion or Disorientation No (0 pts) Intoxicated or Sedated No (0 pts) Impaired Gait No (0 pts) Mobility Assist Device Used No (0 pt) Altered Elimination No (0 pt) Score/Fall Risk Level 0 - 2 = Low Risk Oriented to surroundings. Abuse screen: Denies threats or abuse. Denies injuries from another. Nutritional screening: No deficits noted. Tuberculosis screening: No symptoms or risk factors identified. Assessment: 12:16 General: Appears in no apparent distress. uncomfortable, well groomed, well developed, kc6 Behavior is cooperative, anxious, restless. Pain: Complains of pain in chest Pain does not radiate. Pain currently is 10 out of 10 on a pain scale. Quality of pain is described as sharp, squeezing, Pain began 30 min ago. Is continuous. Neuro: Level of Consciousness is awake, alert, obeys commands, Oriented to person, place, time, situation, Appropriate for age. Cardiovascular: Reports chest pain, Heart tones S1 S2 present Capillary refill < 3 seconds Rhythm is sinus rhythm. Respiratory: Airway is patent Trachea midline Respiratory effort is even, labored, pursed lip, Respiratory pattern is symmetrical, Breath sounds are clear bilaterally. GI: No signs and/or symptoms were reported involving the gastrointestinal system. : No signs and/or symptoms were reported regarding the genitourinary system. EENT: No signs and/or symptoms were reported regarding the EENT system. Derm: No signs and/or symptoms reported regarding the dermatologic system. Skin is intact, is healthy with good turgor, Skin is pink, warm \T\ dry. Musculoskeletal: No signs and/or symptoms reported regarding the musculoskeletal system. Circulation, motion, and sensation intact. Capillary refill < 3 seconds, Range of motion: intact in all extremities. 13:30 Reassessment: Patient denies pain at this time. Patient states feeling better. Patient kb3 states symptoms have improved. Vital Signs: 12:00 BP 152 / 90; Pulse 92; Resp 20 S; Temp 97.9(O); Pulse Ox 100% on R/A; Weight 89.36 kg kc6 (R); Height 5 ft. 7 in. (R); Pain 10/10; 13:41 BP 136 / 86; Pulse 80; Resp 18; Pulse Ox 100% ; kb3 12:00 Body Mass Index 30.85 (89.36 kg, 170.18 cm) kc6 12:00 Pain Scale: Adult kc6 ED Course: 12:00 Patient arrived in ED. kc6 12:00 Phoebe Short PA-C is PHCP. sb4 12:00 Nilson Son MD is Attending Physician. sb4 12:01 Triage completed. kc6 12:01 Arm band placed on. kc6 12:15 Catalina Clark RN is Primary Nurse. kc6 12:17 Patient has correct armband on for positive identification. Bed in low position. Call kc light in reach. Side rails up X2. monitor tech on. Pulse ox on. NIBP on. Door closed. Noise minimized. Lights dimmed. Pillow given. 12:17 Patient maintains SpO2 saturation greater than 95% on room air. kc6 13:09 Laura Bradshaw DO is Referral Physician. sb4 13:41 Provided Education on: Discharge, follow up, medications. kb3 13:41 No provider procedures requiring assistance completed. Patient did not have IV access kb3 during this emergency room visit. Administered Medications: 12:44 Drug: Diazepam PO 5 mg PO once Route: PO; kc6 13:30 Follow up: Response: No adverse reaction; Anxiety decreased kb3 Medication: 13:41 VIS not applicable for this client. kb3 Outcome: 13:09 Discharge ordered by MD. sb4 13:41 Discharged to home ambulatory, with family, kb3 13:41 Condition: stable 13:41 Discharge instructions given to patient, family, Instructed on discharge instructions, follow up and referral plans. medication usage, Demonstrated understanding of instructions, follow-up care, medications, Prescriptions given X 1, 13:43 Patient left the ED. kb3 Signatures: Catalina Clark, RN RN kc6 Anat Gleason, HEMA RN kb3 Phoebe Short, PA-C PA-C sb4
[2024-07-14 13:49] VITALS: BP 136/86; TEMP 97.9; O2SAT 100
--- NOTE | 2024-07-15 12:29 | EKG ---
Test Date: 2024-07-14 Test Time: 12:32:46 Accounting Machine Mechanic: LONNIE MEASUREMENT RESULTS: Intervals: Rate: 79 OR: 140 QRSD: 86 QT: 398 QTc: 456 [place]: P: 61 OR: 140 QRS: 21 T: 3 INTERPRETIVE STATEMENTS: Normal sinus rhythm Nonspecific T wave abnormality Abnormal ECG Compared to ECG 07/13/2024 06:22:40 T-wave abnormality now present Prolonged QT interval no longer present Electronically Signed On 07-15-24 12:26:25 CDT by Terrence Stevenson
== END 2024-07-14 13:43 | disposition home or self-care (01) ==
LOC: ER 11:57
DX: F41.9 Anxiety disorder, unspecified (principal); I10 Essential (primary) hypertension
CPT/HCPCS: 93005; 99284

== ENCOUNTER 2024-07-18 12:18 | Emergency (ER) | payer OTHER ==
[2024-07-18] MEDS ORDERED: LIDOCAINE VISCOUS 2% 10ML ORAL SOLN ONE (13:30)
[2024-07-18] MEDS ORDERED: KETOROLAC 30 MG/ML INJ ONE (13:30)
--- NOTE | 2024-07-18 13:48 | ER ---
Nurse's Notes [facility] Name: Oc Burks Age: 49 yrs Sex: Female : 1975 Arrival Date: 07/18/2024 Time: 12:18 Bed DX3 Private MD: Diagnosis: Acute pharyngitis, unspecified;Chest pain, unspecified Presentation: 07/18 12:55 Chief complaint: EMS states: sore throat, chest pain, back pain, starting two weeks tm6 ago. Coronavirus screen: Vaccine status: Patient reports receiving the 2nd dose of the covid vaccine. Ebola Screen: Patient negative for fever greater than or equal to 101.5 degrees Fahrenheit, and additional compatible Ebola Virus Disease symptoms Patient denies exposure to infectious person. Patient denies travel to an Ebola-affected area in the 21 days before illness onset. No symptoms or risks identified at this time. Initial Sepsis Screen: Does the patient meet any 2 criteria? No. Patient's initial sepsis screen is negative. Does the patient have a suspected source of infection? No. Patient's initial sepsis screen is negative. Risk Assessment: Do you want to hurt yourself or someone else? Patient reports no desire to harm self or others. Onset of symptoms was July 03, 2024. 12:55 Method Of Arrival: EMS: [facility] tm6 12:55 Acuity: MICHAEL 3 tm6 Triage Assessment: 12:55 General: Appears in no apparent distress. Behavior is calm, cooperative. Pain: tm6 Complains of pain in back and chest, throat Pain currently is 8 out of 10 on a pain scale. EENT: Reports pain in throat. Neuro: Level of Consciousness is awake, alert, obeys commands, Oriented to person, place, time, situation. Cardiovascular: Patient's skin is warm and dry. Cardiovascular: Reports chest pain, Chest pain. Respiratory: Airway is patent Respiratory effort is even, unlabored, Respiratory pattern is regular, symmetrical. GI:. : No signs and/or symptoms were reported regarding the genitourinary system. Derm: No signs and/or symptoms reported regarding the dermatologic system. Musculoskeletal: No signs and/or symptoms reported regarding the musculoskeletal system. Historical: - Allergies: 12:55 PENICILLINS; tm6 - PMHx: 12:55 Anxiety; depressive disorder; Hypertensive disorder; tm6 - PSHx: 12:55 section; tm6 - Immunization history:: Client reports receiving the 2nd dose of the Covid vaccine. - Infectious Disease History:: Denies. - Social history:: Smoking status: Patient denies any tobacco usage or history of. Patient/guardian denies using alcohol. Screenin:45 [facility] ED Fall Risk Assessment (Adult) History of falling in the last 3 months, tm6 including since admission No falls in past 3 months (0 pts) Confusion or Disorientation No (0 pts) Intoxicated or Sedated No (0 pts) Impaired Gait No (0 pts) Mobility Assist Device Used No (0 pt) Altered Elimination No (0 pt) Score/Fall Risk Level 0 - 2 = Low Risk Oriented to surroundings, Maintained a safe environment, Educated pt \T\ family on fall prevention, incl call for assistance when getting out of bed. Abuse screen: Denies threats or abuse. Denies injuries from another. Nutritional screening: No deficits noted. Tuberculosis screening: No symptoms or risk factors identified. Assessment: 13:45 Reassessment: see triage assessment. Respiratory: Airway is patent Respiratory effort tm6 is even, unlabored, Respiratory pattern is regular, symmetrical, Breath sounds are clear. 14:19 Reassessment: Patient appears in no apparent distress at this time. Patient and/or tm6 family updated on plan of care and expected duration. Pain level reassessed. Patient is alert, oriented x 3, equal unlabored respirations, skin warm/dry/pink. Patient states feeling better. 14:20 EENT: Throat is clear. tm6 Vital Signs: 12:54 Resp 17; Weight 88.9 kg; Height 5 ft. 7 in. ; Pain 8/10; tm6 12:55 BP 146 / 72; Pulse 86; Pulse Ox 100% ; MAP 91 mmHg; tm6 12:58 Temp 98.6(O); tm6 14:18 BP 142 / 73; Pulse 87; Resp 17; Temp 98.6; Pulse Ox 98% on R/A; Pain 0/10; tm6 12:54 Body Mass Index 30.70 (88.90 kg, 170.18 cm) tm6 12:54 Pain Scale: Adult tm6 14:18 Pain Scale: Adult tm6 ED Course: 12:23 Patient arrived in ED. ra3 12:24 Alejo Reilly MD is Attending Physician. ec2 12:55 Arm band placed on right wrist. tm6 12:55 EKG completed in triage. Results shown to MD. tm6 12:56 Triage completed. tm6 13:45 Patient has correct armband on for positive identification. tm6 13:45 No provider procedures requiring assistance completed. Patient did not have IV access tm6 during this emergency room visit. 14:19 Provided Education on: follow up with PCP. tm6 Administered Medications: 13:44 Drug: Viscous Lidocaine Mucous Membrane Liquid (4 %) 10 ml Mucous Membrane once Route: tm6 Mucous Membrane; 14:20 Follow up: Response: No adverse reaction tm6 13:44 Drug: Ketorolac IM 30 mg IM once Route: IM; Site: right deltoid; tm6 14:19 Follow up: Response: No adverse reaction tm6 Medication: 13:45 VIS not applicable for this client. tm6 Outcome: 13:47 Discharge ordered by . ec2 14:19 Discharged to home ambulatory, tm6 14:19 Condition: stable 14:19 Discharge instructions given to patient, Instructed on discharge instructions, follow up and referral plans. Demonstrated understanding of instructions, follow-up care, 14:20 Patient left the ED. tm6 Signatures: Alejo Reilly MD MD ec2 Ismael Perry RN RN tm6 Ani Nagy 3
--- NOTE | 2024-07-18 13:48 | EDPHYS ---
Physician Documentation [facility] Name: Oc Burks Age: 49 yrs Sex: Female : 1975 Arrival Date: 07/18/2024 Time: 12:18 Bed DX3 Private MD: ED Physician Alejo Reilly HPI: 07/18 12:27 This 49 yrs old Black Female presents to ER via Unassigned with complaints of Sore ec2 Throat. 12:27 Patient arrives today for evaluation of sore throat. Patient complaining of sore ec2 throat, states the pain radiates into her chest. Patient reports no exertional component, reports pain with swallowing. Reports otherwise no other concerns.. Historical: - Allergies: 12:55 PENICILLINS; tm6 - PMHx: 12:55 Anxiety; depressive disorder; Hypertensive disorder; tm6 - PSHx: 12:55 section; tm6 - Immunization history:: Client reports receiving the 2nd dose of the Covid vaccine. - Infectious Disease History:: Denies. - Social history:: Smoking status: Patient denies any tobacco usage or history of. Patient/guardian denies using alcohol. ROS: 12:27 Constitutional: as per hpi ec2 Exam: 12:27 Constitutional: GEN: NAD Head: atraumatic Eyes: EOMI Ears: External ears are normal. ec2 Mouth: Posterior oropharynx without erythema, no exudate appreciated, no tonsillar or uvular swelling. CV: regular rate LUNGS: no respiratory distress ABD: non-distended SKIN: no evidence of rashes MSK: no evidence of trauma Vital Signs: 12:54 Resp 17; Weight 88.9 kg; Height 5 ft. 7 in. ; Pain 8/10; tm6 12:55 BP 146 / 72; Pulse 86; Pulse Ox 100% ; MAP 91 mmHg; tm6 12:58 Temp 98.6(O); tm6 14:18 BP 142 / 73; Pulse 87; Resp 17; Temp 98.6; Pulse Ox 98% on R/A; Pain 0/10; tm6 12:54 Body Mass Index 30.70 (88.90 kg, 170.18 cm) tm6 12:54 Pain Scale: Adult tm6 14:18 Pain Scale: Adult tm6 MDM: 12:27 Data reviewed: vital signs. ED course: Patient arrives today for evaluation of sore ec2 throat. Examination remarkable for well-appearing nontoxic dividual's otherwise in no acute distress with a reassuring examination. Will obtain EKG given the reported chest pain, will treat the patient's sore throat with viscous lidocaine as well as Toradol. Suspect pharyngitis. Doubt ACS or PE or dissection.. 13:05 ED course: EKG with no acute issues, shows normal sinus rhythm, rate of 87, no acute ST ec2 segment elevations, intervals are nonactionable. . 13:47 Patient medically screened. ec2 07/18 12:25 Order name: EKG - Nurse/Tech; Complete Time: 12:57 ec2 Administered Medications: 13:44 Drug: Viscous Lidocaine Mucous Membrane Liquid (4 %) 10 ml Mucous Membrane once Route: tm6 Mucous Membrane; 14:20 Follow up: Response: No adverse reaction tm6 13:44 Drug: Ketorolac IM 30 mg IM once Route: IM; Site: right deltoid; tm6 14:19 Follow up: Response: No adverse reaction tm6 Disposition Summary: 07/18/24 13:47 Discharge Ordered Notes: Location: Home ec2 Condition: Stable ec2 Diagnosis - Acute pharyngitis, unspecified ec2 - Chest pain, unspecified ec2 Followup: ec2 - With: Private Physician - When: - Reason: Recheck today's complaints Discharge Instructions: - Discharge Summary Sheet ec2 - Sore Throat ec2 Forms: - Medication Reconciliation Form ec2 - Antibiotic Education ec2 - Prescription Opioid Use ec2 - Patient Portal Instructions ec2 - Leadership Thank You Letter ec2 - Work release form tm6 Signatures: Alejo Reilly MD MD ec2 Ismael Perry RN RN tm6
[2024-07-18 15:57] VITALS: TEMP 98.6
[2024-07-18 15:58] VITALS: BP 142/73; O2SAT 98
--- NOTE | 2024-07-24 12:18 | EKG ---
Test Date: 2024-07-18 Test Time: 12:51:27 Health Science Writer: FREDIS MEASUREMENT RESULTS: Intervals: Rate: 87 WA: 136 QRSD: 90 QT: 406 QTc: 488 [place]: P: 70 WA: 136 QRS: 14 T: 38 INTERPRETIVE STATEMENTS: Normal sinus rhythm Prolonged QT Abnormal ECG Compared to ECG 07/14/2024 12:32:46 Prolonged QT interval now present T-wave abnormality no longer present Electronically Signed On 07-24-24 12:01:41 CDT by Terrence Stevenson
== END 2024-07-18 14:20 | disposition home or self-care (01) ==
LOC: ER 12:18
DX: J02.9 Acute pharyngitis, unspecified (principal); R07.9 Chest pain, unspecified
CPT/HCPCS: 93005; 96372; 99284

== ENCOUNTER 2024-08-13 04:17 | Emergency (ER) | payer OTHER ==
[2024-08-13] MEDS ORDERED: DIAZEPAM 5 MG TABLET ONE (05:04)
[2024-08-13 05:13] LABS: Absolute Eosinophils 0.1 K/uL (0-0.5); Absolute Lymphocytes (CBC) 1.7 K/uL (0.7-4.9); Absolute Monocytes 0.5 K/uL (0.1-1.3); Absolute Neutrophil 3.2 K/uL (1.8-8.0); Basophils % 0.9 % (0-1.3); Eosinophils % 2.5 % (0-4.4); Hematocrit 35.3 % (36.0-45.0); Hemoglobin 11.7 g/dL (12.0-15.0); Lymphocytes % 31.1 % (15.3-44.8); MCH 30.3 pg (27.0-35.0); MCHC 33.2 g/dL (32.0-36.0); MCV 91.2 fL (80-100); MPV 11.1 fL (7.6-11.3); Monocytes % 8.6 % (3.3-12.3); Neutrophils % 56.9 % (41.7-73.7); Nucleated Red Blood Cells % 0.2 % (0-0); Platelets 154 thou/uL (152-406); RBC Red Blood Cell Count 3.87 M/uL (3.86-4.86); Red Cell Distribution Width 13.5 % (12.1-15.2)
[2024-08-13 05:18] LABS: PT Prothrombin Time 11.4 SECONDS (9.4-12.5); Protime INR 1.02
--- NOTE | 2024-08-13 05:51 | RAD REPORT ---
EXAM DESCRIPTION: Chest Single View CLINICAL HISTORY: CHEST PAIN COMPARISON: None TECHNIQUE: Single AP view of the chest. FINDINGS: Lung volumes adequate. Cardiac silhouette is normal in size. No pneumothorax. No large pleural effusion. No focal consolidation. No acute bony finding. IMPRESSION: No evidence of acute cardiopulmonary disease. Electronically signed by: Henrry Pelayo MD 08/13/2024 05:21 AM [facility] Z9 Due to temporary technical issues with the PACS/CineFlow reporting system, reports are being petra d by the in-house radiologist without review as a courtesy to ensure prompt reporting the interpreting radiologist is fully responsible for the content of the report. Transcribed Date/Time: 08/13/2024 5:51 AM
[2024-08-13 06:02] LABS: Anion Gap 8.8 mEq/L (5.0-15.0); BUN Blood Urea Nitrogen 14 mg/dL (7-18); Bicarbonate 27 mEq/L (21-32); Glucose Level 79 mg/dL (74-106); Potassium 3.8 mEq/L (3.5-5.1); Sodium Level 141 mEq/L (136-145)
[2024-08-13 06:03] LABS: ALT/SGPT 17 U/L (13-56); AST/SGOT 22 U/L (15-37); Albumin/Globulin Ratio 0.7 (1.1-1.8); Alkaline Phosphatase 66 U/L (45-117); Globulin 4.3 g/dL (2.3-3.5); Glomerular Filtration Rate 67 ml/min (=/>90); Magnesium 2.3 mg/dL (1.6-2.4); NT PRO-BNP 151 pg/mL (<125); Protein, Total 7.3 g/dL (6.4-8.2); Troponin High Sensitivity 4.4 pg/mL (<58.9)
[2024-08-13 06:12] LABS: Bilirubin Direct < 0.2 mg/dL (0-0.2); Bilirubin Total < 0.2 mg/dL (0.2-1.0)
--- NOTE | 2024-08-13 06:27 | EDPHYS ---
Physician Documentation [facility] Name: Oc Burks Age: 49 yrs Sex: Female : 1975 Arrival Date: 08/13/2024 Time: 04:17 Bed 5 Private MD: ED Physician River Gomez HPI: 08/13 04:35 This 49 yrs old Black Female presents to ER via Unassigned with complaints of Chest sp4 Pain, Headache, Eye Pain. 05:55 49-year-old female presents with acute onset of chest pain and also a headache and pain sp4 in her eyes on awakening this morning.. Historical: - Allergies: 04:22 PENICILLINS; ha1 - PMHx: 04:22 Anxiety; depressive disorder; Hypertensive disorder; ha1 - PSHx: 04:22 section; ha1 - Immunization history:: Adult Immunizations up to date. - Infectious Disease History:: Denies. - Social history:: Smoking status: Patient denies any tobacco usage or history of. - Family history:: not pertinent. ROS: 05:55 Constitutional: Negative for fever, chills, and weight loss, positive anxiety , chest sp4 pain, headache, positive pain in the eyes Eyes: Negative for injury, pain, redness, and discharge, 05:55 All other systems are negative, Exam: 05:55 Constitutional: This is a well developed, well nourished patient who is awake, alert, sp4 and in no acute distress. Head/Face: Normocephalic, atraumatic. Eyes: Pupils equal round and reactive to light, extra-ocular motions intact. Lids and lashes normal. Conjunctiva and sclera are not injected. Cornea within normal limits. Periorbital areas with no swelling, redness, or edema. ENT: Nares patent. No nasal discharge, no septal abnormalities noted. Tympanic membranes are normal and external auditory canals are clear. Oropharynx with no redness, swelling, or masses, exudates, or evidence of obstruction, uvula midline. Mucous membranes moist. Neck: Trachea midline, no thyromegaly or masses palpated, and no cervical lymphadenopathy. Supple, full range of motion without nuchal rigidity, or vertebral point tenderness. Chest/axilla: Normal chest wall appearance and motion. Nontender with no deformity. No lesions are appreciated. Cardiovascular: Regular rate and rhythm with a normal S1 and S2. No gallops, murmurs, or rubs. Normal PMI, no JVD. No pulse deficits. Respiratory: Lungs have equal breath sounds bilaterally, clear to auscultation and percussion. No rales, rhonchi or wheezes noted. No increased work of breathing, no retractions or nasal flaring. Abdomen/GI: Soft, with normal bowel sounds. No distension or tympany. No guarding or rebound. No evidence of tenderness throughout. Back: No spinal tenderness. No costovertebral tenderness. Skin: Warm, dry with normal turgor. Normal color with no rashes, no lesions, and no evidence of cellulitis. MS/ Extremity: Pulses equal, no cyanosis. Neurovascular intact. Full, normal range of motion. Neuro: Awake and alert, GCS 15, oriented to person, place, time, and situation. Cranial nerves II-XII grossly intact. Motor strength 5/5 in all extremities. Sensory grossly intact. Psych: Awake, alert, with orientation to person, place and time. Behavior, mood, and affect are within normal limits 05:55 ECG was reviewed by the Attending Physician. EKG at 0433 NSR Vital Signs: 04:22 BP 157 / 100; Pulse 83; Resp 17 S; Temp 97.6(T); Pulse Ox 100% on R/A; Weight 89.81 kg; ha1 Height 5 ft. 7 in. ; 04:58 BP 145 / 98; Pulse 81; Resp 20; Temp 97.6; Pulse Ox 100% on R/A; bm8 06:14 BP 156 / 96; Pulse 76; Resp 14; Temp 97.6; Pulse Ox 100% on R/A; Pain 7/10; bm8 04:22 Body Mass Index 31.01 (89.81 kg, 170.18 cm) ha1 06:14 Pain Scale: Adult bm8 [place] Coma Score: 04:58 Eye Response: spontaneous(4). Motor Response: obeys commands(6). Verbal Response: bm8 oriented(5). Total: 15. 06:14 Eye Response: spontaneous(4). Motor Response: obeys commands(6). Verbal Response: bm8 oriented(5). Total: 15. MDM: 04:37 Medical Screening Exam initiated sp4 05:54 ED course: EXAM DESCRIPTION: Chest Single View CLINICAL HISTORY: CHEST PAIN COMPARISON: sp4 None TECHNIQUE: Single AP view of the chest. FINDINGS: Lung volumes adequate. Cardiac silhouette is normal in size. No pneumothorax. No large pleural effusion. No focal consolidation. No acute bony finding. IMPRESSION: No evidence of acute cardiopulmonary disease. . 06:46 Differential diagnosis: acute pericarditis, chest wall pain, esophagitis, gastritis. sp4 HEART Score: History: Slightly Suspicious (0), ECG: Normal (0), Age: > 45 and < 65 years (1), Risk Factors: 1 or 2 risk factors (1), Troponin: < or = 1 x Normal Limit (0), Total Score = 2. Data reviewed: vital signs, radiologic studies, plain films. ED course: Patient has no signs of acute ACS. Stable for discharge home.. . 08/13 04:37 Order name: Basic Metabolic Panel; Complete Time: 06:20 sp4 08/13 04:37 Order name: CBC with Diff; Complete Time: 05:53 sp4 08/13 04:37 Order name: LFT's; Complete Time: 06:20 sp4 08/13 04:37 Order name: Magnesium; Complete Time: 06:20 sp4 08/13 04:37 Order name: NT PRO-BNP; Complete Time: 06:20 sp4 08/13 04:37 Order name: PT-INR; Complete Time: 05:53 sp4 08/13 04:37 Order name: Troponin HS; Complete Time: 06:20 sp4 08/13 04:54 Order name: Test, Serum; Complete Time: 05:53 ha1 08/13 04:37 Order name: XRAY Chest (1 view) sp4 08/13 04:37 Order name: Cardiac monitoring; Complete Time: 04:58 sp4 08/13 04:37 Order name: EKG - Nurse/Tech; Complete Time: 04:58 sp4 08/13 04:37 Order name: IV Saline Lock; Complete Time: 04:54 sp4 08/13 04:37 Order name: Labs collected and sent; Complete Time: 04:55 sp4 08/13 04:37 Order name: O2 Per Protocol; Complete Time: 04:55 sp4 08/13 04:37 Order name: O2 Sat Monitoring; Complete Time: 04:55 sp4 EC:55 Rate is 76 beats/min. Rhythm is regular, Normal Sinus Rhythm. QRS [place] is Normal. TN sp4 interval is normal. QRS interval is normal. QT interval is normal. No Q waves. T waves are Normal. No ST changes noted. Clinical impression: Normal ECG. Interpreted by me. Reviewed by me. Administered Medications: 05:05 Drug: Diazepam PO 10 mg PO once Route: PO; bm8 06:17 Follow up: Response: No adverse reaction bm8 06:47 Drug: traMADol PO 100 mg PO once Route: PO; dd2 06:56 Follow up: Response: Medication Administered at Departure dd2 06:47 Drug: Ibuprofen PO 800 mg PO once Route: PO; dd2 06:56 Follow up: Response: Medication Administered at Departure dd2 Disposition Summary: 08/13/24 06:26 Discharge Ordered Notes: Location: Home sp4 Problem: new sp4 Symptoms: have improved sp4 Condition: Stable sp4 Diagnosis - Anxiety disorder, unspecified sp4 - Acute anxiety attack sp4 Followup: sp4 - With: Private Physician - When: 7 - 10 days - Reason: Recheck today's complaints Discharge Instructions: - Discharge Summary Sheet sp4 - Managing Anxiety, Adult sp4 Forms: - Patient Portal Instructions sp4 Prescriptions: - Fioricet 50-300-40 mg Oral capsule - take 1 capsule ORAL route every 8 hours PRN headache; 30 capsule; Refills: 0, sp4 Product Selection Permitted - Hydroxyzine HCl 25 mg Oral tablet - take 1 tablet ORAL route every 8 hours As needed PRN anxiety; 30 tablet; sp4 Refills: 0, Product Selection Permitted Signatures: Dispatcher [employer] EDMS Evelyn Carver, RN RN ha1 River Gomez MD MD sp4 Ed Gonsales RN RN bm8 DORCAS KAUFMAN RN RN dd2 Corrections: (The following items were deleted from the chart) 04:37 04:37 BASIC METABOLIC PANEL+C.LAB.BRZ ordered. EDMS EDMS 04:37 04:37 CBC+H.LAB.BRZ ordered. EDMS EDMS 04:37 04:37 HEPATIC FUNCTION+C.LAB.BRZ ordered. EDMS EDMS 04:37 04:37 MAGNESIUM+C.LAB.BRZ ordered. EDMS EDMS 04:37 04:37 PROBNP+C.LAB.BRZ ordered. EDMS EDMS 04:37 04:37 PROTIME (+INR)+COAG.LAB.BRZ ordered. EDMS EDMS 04:37 04:37 Troponin High Sensitivity+C.LAB.BRZ ordered. EDMS EDMS 04:37 04:37 Chest Single View+RAD.RAD.BRZ ordered. EDMS EDMS 04:38 04:38 Urinalysis W/Microscopic+U.LAB.BRZ ordered. EDMS EDMS 04:38 04:38 URINE DRUG SCREEN+UC.LAB.BRZ ordered. EDMS EDMS 05:31 04:38 Test, Urine+UC.LAB.BRZ ordered. EDMS EDMS
--- NOTE | 2024-08-13 06:27 | ER ---
Nurse's Notes [facility] Name: Oc Burks Age: 49 yrs Sex: Female : 1975 Arrival Date: 08/13/2024 Time: 04:17 Bed 5 Private MD: Diagnosis: Anxiety disorder, unspecified;Acute anxiety attack Presentation: 08/13 04:22 Chief complaint: Patient states: SUDDEN ONSET OF CHEST PAIN THAT WOKE ME OF MY SLEEP, ha1 HEADACHE, AND EYE PAIN. 04:22 Coronavirus screen: Vaccine status: Client denies travel out of the [place] in the last 14 ha1 days. At this time, the client does not indicate any symptoms associated with coronavirus-19. Ebola Screen: No symptoms or risks identified at this time. Initial Sepsis Screen: Does the patient meet any 2 criteria? No. Patient's initial sepsis screen is negative. Does the patient have a suspected source of infection? No. Patient's initial sepsis screen is negative. Risk Assessment: Do you want to hurt yourself or someone else? Patient reports no desire to harm self or others. Onset of symptoms was August 13, 2024. 04:22 Method Of Arrival: Ambulatory ha1 04:22 Acuity: MICHAEL 2 ha1 Triage Assessment: 04:22 General: Appears comfortable, Behavior is calm, cooperative. Pain: Complains of pain in ha1 epigastric area Pain does not radiate. Pain currently is 10 out of 10 on a pain scale. Quality of pain is described as burning, aching. EENT: Reports EYE PAIN . Neuro: Level of Consciousness is awake, alert, obeys commands, Oriented to person, place, time, situation. Neuro: Reports headache. Cardiovascular: Patient's skin is warm and dry. Cardiovascular: Reports chest pain. Respiratory: Airway is patent Respiratory effort is even, unlabored, Respiratory pattern is regular, symmetrical. GI: Reports epigastric pain. : No signs and/or symptoms were reported regarding the genitourinary system. Derm: Skin is normal. Historical: - Allergies: 04:22 PENICILLINS; ha1 - PMHx: 04:22 Anxiety; depressive disorder; Hypertensive disorder; ha1 - PSHx: 04:22 section; ha1 - Immunization history:: Adult Immunizations up to date. - Infectious Disease History:: Denies. - Social history:: Smoking status: Patient denies any tobacco usage or history of. - Family history:: not pertinent. Screenin:58 [facility] ED Fall Risk Assessment (Adult) History of falling in the last 3 months, bm8 including since admission No falls in past 3 months (0 pts) Confusion or Disorientation No (0 pts) Intoxicated or Sedated No (0 pts) Impaired Gait No (0 pts) Mobility Assist Device Used No (0 pt) Altered Elimination No (0 pt) Score/Fall Risk Level 0 - 2 = Low Risk Oriented to surroundings, Maintained a safe environment, Educated pt \T\ family on fall prevention, incl call for assistance when getting out of bed, Assessed \T\ reinforced patient's understanding of fall precautions, Hourly rounding (assess needs \T\ fall precautionary measures) done, Used ambulatory aids as needed (educated on \T\ assisted with), Used gait belt as appropriate. Abuse screen: Denies threats or abuse. Nutritional screening: No deficits noted. Tuberculosis screening: No symptoms or risk factors identified. Assessment: 06:14 Reassessment: Patient appears in no apparent distress at this time. Patient and/or bm8 family updated on plan of care and expected duration. Pain level reassessed. Patient is alert, oriented x 3, equal unlabored respirations, skin warm/dry/pink. Patient states symptoms have improved. General: Appears in no apparent distress. comfortable, Behavior is calm, cooperative, appropriate for age. Pain: Complains of pain in head Pain currently is 7 out of 10 on a pain scale. Pain began 3 hours ago. Neuro: No deficits noted. Level of Consciousness is awake, alert, obeys commands, Oriented to person, place, time, situation, Appropriate for age. Neuro: Reports headache with pressure behind her right eye. Cardiovascular: No deficits noted. Denies chest pain, lightheadedness, shortness of breath. Respiratory: Airway is patent Respiratory effort is even, unlabored, Respiratory pattern is regular, symmetrical, Denies shortness of breath labored breathing. GI: No signs and/or symptoms were reported involving the gastrointestinal system. : No signs and/or symptoms were reported regarding the genitourinary system. EENT: No signs and/or symptoms were reported regarding the EENT system. Derm: No signs and/or symptoms reported regarding the dermatologic system. Musculoskeletal: No signs and/or symptoms reported regarding the musculoskeletal system. Vital Signs: 04:22 BP 157 / 100; Pulse 83; Resp 17 S; Temp 97.6(T); Pulse Ox 100% on R/A; Weight 89.81 kg; ha1 Height 5 ft. 7 in. ; 04:58 BP 145 / 98; Pulse 81; Resp 20; Temp 97.6; Pulse Ox 100% on R/A; bm8 06:14 BP 156 / 96; Pulse 76; Resp 14; Temp 97.6; Pulse Ox 100% on R/A; Pain 7/10; bm8 04:22 Body Mass Index 31.01 (89.81 kg, 170.18 cm) ha1 06:14 Pain Scale: Adult bm8 [place] Coma Score: 04:58 Eye Response: spontaneous(4). Motor Response: obeys commands(6). Verbal Response: bm8 oriented(5). Total: 15. 06:14 Eye Response: spontaneous(4). Motor Response: obeys commands(6). Verbal Response: bm8 oriented(5). Total: 15. ED Course: 04:20 Patient arrived in ED. jj6 04:31 DORCAS KAUFMAN, RN is Primary Nurse. dd2 04:35 River Gomez MD is Attending Physician. sp4 04:45 Triage completed. ha1 04:58 Patient has correct armband on for positive identification. Bed in low position. Call bm8 light in reach. Side rails up X 1. Client placed on continuous cardiac and pulse oximetry monitoring. NIBP monitoring applied. radiation monitor on. Pulse ox on. NIBP on. Door closed. Noise minimized. Warm blanket given. Pillow given. Verbal reassurance given. Head of bed elevated. 04:58 No provider procedures requiring assistance completed. Initial lab(s) drawn, by christin العلي sent to lab. EKG done, by ED staff, reviewed by River Gomez MD. Inserted saline lock: 20 gauge in left antecubital area, using aseptic technique. Blood collected. Flushed with 10 mL NS. Patient maintains SpO2 saturation greater than 95% on room air. 05:12 XRAY Chest (1 view) In Process Unspecified. EDMS 06:55 Provided Education on: D/C INSTRUCTIONS. dd2 06:55 IV discontinued, intact, bleeding controlled, No redness/swelling at site. Pressure dd2 dressing applied. Administered Medications: 05:05 Drug: Diazepam PO 10 mg PO once Route: PO; bm8 06:17 Follow up: Response: No adverse reaction bm8 06:47 Drug: traMADol PO 100 mg PO once Route: PO; dd2 06:56 Follow up: Response: Medication Administered at Departure dd2 06:47 Drug: Ibuprofen PO 800 mg PO once Route: PO; dd2 06:56 Follow up: Response: Medication Administered at Departure dd2 Medication: 04:58 VIS not applicable for this client. bm8 Outcome: 06:26 Discharge ordered by . sp4 06:55 Discharged to home ambulatory, dd2 06:55 Condition: stable 06:55 Discharge instructions given to patient, Instructed on discharge instructions, follow up and referral plans. medication usage, Demonstrated understanding of instructions, follow-up care, medications, Prescriptions given X 2, 06:57 Patient left the ED. dd2 Signatures: Dispatcher [employer] EDMS Belem Charlton [email or web address] Evelyn Carver, RN RN River Rudd MD MD sp4 Ed Gonsales RN RN bm8 DORCAS KAUFMAN RN RN dd2
[2024-08-13] MEDS ORDERED: TRAMADOL HCL 50 MG TAB ONE (06:34)
[2024-08-13] MEDS ORDERED: IBUPROFEN 400 MG TAB ONE (06:34)
[2024-08-13 07:23] VITALS: TEMP 97.6; O2SAT 100
[2024-08-13 07:25] VITALS: BP 156/96
== END 2024-08-13 06:57 | disposition home or self-care (01) ==
LOC: ER 04:17
DX: F41.0 Panic disorder [episodic paroxysmal anxiety] (principal); F41.9 Anxiety disorder, unspecified; I10 Essential (primary) hypertension
CPT/HCPCS: 36415; 71045; 80048; 80076; 83735; 83880; 84484; 84703; 85025; 85610

== ENCOUNTER 2024-09-23 20:16 | Emergency (ER) | payer OTHER ==
[2024-09-23] MEDS ORDERED: ONDANSETRON 4 MG/2 ML VIAL ONE (21:27)
[2024-09-23] MEDS ORDERED: LORazepam 2 MG/ML VIAL ONE (21:28)
[2024-09-23] MEDS ORDERED: ASPIRIN 81 MG CHEWABLE TABLET ONE (21:28)
[2024-09-23] MEDS ORDERED: FAMOTIDINE 20 MG/2 ML VIAL IV ONE (21:29)
[2024-09-23 21:36] LABS: Absolute Eosinophils 0.1 K/uL (0-0.5); Absolute Lymphocytes (CBC) 1.6 K/uL (0.7-4.9); Absolute Monocytes 0.4 K/uL (0.1-1.3); Absolute Neutrophil 2.7 K/uL (1.8-8.0); Basophils % 0.6 % (0-1.3); Eosinophils % 2.8 % (0-4.4); Hematocrit 34.7 % (36.0-45.0); Hemoglobin 11.1 g/dL (12.0-15.0); Lymphocytes % 33.3 % (15.3-44.8); MCH 29.2 pg (27.0-35.0); MCV 91.1 fL (80-100); MPV 10.4 fL (7.6-11.3); Monocytes % 8.2 % (3.3-12.3); Neutrophils % 55.1 % (41.7-73.7); Platelets 173 thou/uL (152-406); RBC Red Blood Cell Count 3.81 M/uL (3.86-4.86); Red Cell Distribution Width 12.9 % (12.1-15.2)
[2024-09-23 21:38] LABS: PT Prothrombin Time 11.8 SECONDS (9.4-12.5); Protime INR 1.06
--- NOTE | 2024-09-23 21:56 | RAD REPORT ---
Procedure: Chest Single View HISTORY: Chest pain COMPARISON: August 2024 FINDINGS: The lungs appear clear of acute infiltrate. No significant pleural effusion noted. The heart is normal size. IMPRESSION: No acute abnormality is displayed.
[2024-09-23 22:28] LABS: AST/SGOT 21 U/L (15-37); Albumin 3.4 g/dL (3.4-5.0); Albumin/Globulin Ratio 0.7 (1.1-1.8); Alkaline Phosphatase 72 U/L (45-117); Anion Gap 7.5 mEq/L (5.0-15.0); BUN Blood Urea Nitrogen 12 mg/dL (7-18); Bicarbonate 26 mEq/L (21-32); Bilirubin Total 0.3 mg/dL (0.2-1.0); Globulin 4.7 g/dL (2.3-3.5); Glomerular Filtration Rate 77 ml/min (=/>90); Glucose Level 84 mg/dL (74-106); Magnesium 2.3 mg/dL (1.6-2.4); NT PRO-BNP 278 pg/mL (<125); Potassium 3.5 mEq/L (3.5-5.1); Protein, Total 8.1 g/dL (6.4-8.2); Sodium Level 138 mEq/L (136-145); Troponin High Sensitivity 5.8 pg/mL (<58.9)
[2024-09-23 22:29] LABS: ALT/SGPT < 14 U/L (13-56); Bilirubin Direct < 0.2 mg/dL (0-0.2); Bilirubin Indirect, Calculated 0.1 mg/dL (0.2-0.8)
--- NOTE | 2024-09-23 22:33 | ER ---
Nurse's Notes [facility] Name: Oc Burks Age: 49 yrs Sex: Female : 1975 Arrival Date: 09/23/2024 Time: 20:16 Bed 3 Private MD: Diagnosis: Chest pain, unspecified Presentation: 09/23 20:30 Chief complaint: Patient states: chest pain starting 1830, with headache, nausea, and tm6 neck pain. Coronavirus screen: Client denies travel out of the [place] in the last 14 days. Ebola Screen: Patient negative for fever greater than or equal to 101.5 degrees Fahrenheit, and additional compatible Ebola Virus Disease symptoms Patient denies exposure to infectious person. Patient denies travel to an Ebola-affected area in the 21 days before illness onset. No symptoms or risks identified at this time. Initial Sepsis Screen: Does the patient meet any 2 criteria? No. Patient's initial sepsis screen is negative. Does the patient have a suspected source of infection? No. Patient's initial sepsis screen is negative. Risk Assessment: Do you want to hurt yourself or someone else? Patient reports no desire to harm self or others. Onset of symptoms was September 23, 2024 at 18:30. 20:30 Method Of Arrival: Ambulatory tm6 20:30 Acuity: MICHAEL 3 tm6 Triage Assessment: 20:43 General: Appears in no apparent distress. Behavior is cooperative. Pain: Complains of tm6 pain in chest and neck, head. EENT: No signs and/or symptoms were reported regarding the EENT system. Neuro: Level of Consciousness is awake, alert, obeys commands, Oriented to person, place, time, situation, Reports headache. Cardiovascular: Reports chest pain, Rhythm is sinus rhythm. Cardiovascular: Patient's skin is warm and dry. Respiratory: Airway is patent Respiratory effort is even, unlabored, Respiratory pattern is regular, symmetrical. GI: No signs and/or symptoms were reported involving the gastrointestinal system. Abdomen is flat, non-distended. : No signs and/or symptoms were reported regarding the genitourinary system. Derm: No signs and/or symptoms reported regarding the dermatologic system. Musculoskeletal: Reports pain in chest and neck, head Pain is 10 out of 10 on a pain scale. Historical: - Allergies: 20:43 PENICILLINS; tm6 - PMHx: 20:43 Anxiety; depressive disorder; Hypertensive disorder; tm6 - PSHx: 20:43 section; tm6 - Immunization history:: Flu vaccine is not up to date. - Infectious Disease History:: Denies. - Social history:: Smoking status: Patient denies any tobacco usage or history of. Screenin:35 [facility] ED Fall Risk Assessment (Adult) History of falling in the last 3 months, br2 including since admission No falls in past 3 months (0 pts) Confusion or Disorientation No (0 pts) Intoxicated or Sedated No (0 pts) Impaired Gait No (0 pts) Mobility Assist Device Used No (0 pt) Altered Elimination No (0 pt) Score/Fall Risk Level 0 - 2 = Low Risk. Abuse screen: Denies threats or abuse. Denies injuries from another. Nutritional screening: No deficits noted. Tuberculosis screening: No symptoms or risk factors identified. Assessment: 20:40 Reassessment: Patient and/or family updated on plan of care and expected duration. Pain br2 level reassessed. Patient is alert, oriented x 3, equal unlabored respirations, skin warm/dry/pink. General: Appears in no apparent distress. comfortable, Behavior is calm, cooperative. Pain: Complains of pain in face and chest Pain does not radiate. Pain currently is 10 out of 10 on a pain scale. Pain began. Neuro: Vale Agitation-Sedation Scale (RASS): 0 - Alert and Calm Level of Consciousness is awake, alert, obeys commands, Oriented to person, place, time. Neuro: Reports headache. Cardiovascular: Capillary refill < 3 seconds Chest pain. Respiratory: Airway is patent Respiratory effort is even, unlabored, Respiratory pattern is regular, symmetrical. GI: No signs and/or symptoms were reported involving the gastrointestinal system. GI: No signs and/or symptoms were reported involving the gastrointestinal system. Reports nausea. Vital Signs: 20:30 BP 171 / 94; Pulse 92; Resp 18; Temp 98.8(O); Pulse Ox 100% on R/A; MAP 113 mmHg; Pain tm6 10/10; 22:30 BP 136 / 76; Pulse 87; Resp 18 S; Pulse Ox 98% on R/A; br2 20:30 Pain Scale: Adult tm6 ED Course: 20:19 Patient arrived in ED. gm2 20:21 Natalia Suarez FNP-C is [facility]. kb 20:21 River Gomez MD is Attending Physician. kb 20:33 EKG completed in triage. Results shown to MD. tm6 20:35 Patient has correct armband on for positive identification. Placed in gown. Bed in low br2 position. Call light in reach. Side rails up X 1. Provided Education on: plan of care. metal weigher on. Pulse ox on. 20:35 Inserted saline lock: 20 gauge in right antecubital area, using aseptic technique. br2 Blood collected. Flushed with 10 mL NS. Patient maintains SpO2 saturation greater than 95% on room air. 20:43 Triage completed. tm6 20:43 Arm band placed on right wrist. tm6 21:23 Evelyn Carver, HEMA is Primary Nurse. ha1 21:23 Basic Metabolic Panel Sent. ha1 21:23 CBC with Diff Sent. ha1 21:23 LFT's Sent. ha1 21:23 Magnesium Sent. ha1 21:23 NT PRO-BNP Sent. ha1 21:23 PT-INR Sent. ha1 21:23 Troponin HS Sent. ha1 21:46 XRAY Chest (1 view) In Process Unspecified. EDMS 22:48 IV discontinued, intact, bleeding controlled, No redness/swelling at site. Pressure br2 dressing applied. 22:48 No provider procedures requiring assistance completed. br2 Administered Medications: 21:30 Drug: Ativan IVP 1 mg IVP once Route: IVP; Site: right antecubital; ha1 22:46 Follow up: Response: No adverse reaction br2 21:32 Drug: Famotidine IVP 20 mg IVP once; dilute with 10 mL 0.9% NaCl; give over 2 minutes ha1 Route: IVP; Site: right antecubital; 22:43 Follow up: Response: No adverse reaction br2 21:36 Drug: Aspirin PO Chewable Tablet 324 mg PO once; 81 mg tablets x 4 Route: PO; ha1 21:36 Drug: Ondansetron IVP 4 mg IVP once; over 2 minutes Route: IVP; Site: right antecubital;ha1 22:43 Follow up: Response: No adverse reaction br2 Medication: 22:48 VIS not applicable for this client. br2 Outcome: 22:32 Discharge ordered by MD. agmboa 22:48 Discharged to home ambulatory, br2 22:48 Condition: good 22:48 Discharge instructions given to patient, Instructed on discharge instructions, Demonstrated understanding of instructions, follow-up care, 22:48 Patient left the ED. br2 Signatures: Dispatcher [employer] EDMS Natalia Suarez, RAJEEV-Cherry BOO-Evelyn Dumont RN RN ha1 Kenya Garcia 2 Ismael Perry RN RN 6 Isabela Ely RN RN br2
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
[2024-09-23 22:59] VITALS: BP 136/76; TEMP 98.8; O2SAT 98
--- NOTE | 2024-09-25 11:30 | EKG ---
Test Date: 2024-09-23 Test Time: 20:31:59 Chummer: FREDIS MEASUREMENT RESULTS: Intervals: Rate: 87 LA: 136 QRSD: 84 QT: 390 QTc: 469 Dexter: P: 58 LA: 136 QRS: 11 T: 11 INTERPRETIVE STATEMENTS: Normal sinus rhythm Normal ECG Compared to ECG 08/13/2024 04:33:12 T-wave abnormality no longer present Electronically Signed On 09-25-24 11:27:58 DOCTOR OF OPTOMETRY by Terrence Stevenson
== END 2024-09-23 22:48 | disposition home or self-care (01) ==
LOC: ER 20:16
DX: R07.9 Chest pain, unspecified (principal); I10 Essential (primary) hypertension
CPT/HCPCS: 85025; 80048; 36415; 83735; 85610; 80076; 84484; 83880; 71045; 96375; 96374; 99285; J2405; 93005